=== PATIENT | male | born 1950 | race Caucasian/White ===

== ENCOUNTER 2024-03-23 13:04 | Day surgery (SDC) | payer MEDICARE, OTHER, SELFPAY ==
[2024-03-21 08:20] VITALS: BMI 30.3
--- NOTE | 2024-03-21 13:00 | P.CONAN_ITS ---
Documented by User: Lianet Thomas NP 03/21/24 13:00 HPI - Anesthesia Eval Consult details Narrative: 73yo M for Upper Endoscopy with Balloon Dilitation, [facility] Past Medical History Medical History Hyperlipidemia Sleep apnea Surgical History Surgical History Hx of repair of right rotator cuff Hx of repair of left rotator cuff H/O colonoscopy Social History Social History Patient Tobacco Use Status: Never used Tobacco Use of substances other than those prescribed or required for medical reasons: No Have you been hit, kicked, punched, or otherwise hurt by someone within the past year? If so, by whom?: No Are you DNR?: No Advance Directives: No Advance Directives Information Provided: Yes Recently lost weight without trying: No Nutrition Risks: No Nutritional Risk Meds Allergies Allergy/AdvReac Type Severity Reaction Status Date / Time No Known Allergies Allergy Verified 03/23/24 13:29 Home Medications ?Medication ?Instructions ?Recorded ?Confirmed ?Last Taken ?Type Vascepa 1 tab PO DAILY 03/21/24 03/23/24 03/09/24 History atorvastatin 40 mg tablet 40 mg PO DAILY 03/21/24 03/23/24 03/22/24 History Exam Height,Weight and Vital Signs: Height 5 ft 7.75 in Weight 89.811 kg Assessment and Plan Assessment Anesthesia Assessment: Chart Reviewed Documented by User: Ansley Waggoner MD 03/23/24 13:55 PMFSH Past Medical History Medical History Hyperlipidemia Sleep apnea Family History Family history of problems with anesthesia: No Surgical History Surgical History Hx of repair of right rotator cuff Hx of repair of left rotator cuff H/O colonoscopy History of Problems with Anesthesia: No Social History Social History Patient Tobacco Use Status: Never used Tobacco Use of substances other than those prescribed or required for medical reasons: No Have you been hit, kicked, punched, or otherwise hurt by someone within the past year? If so, by whom?: No Are you DNR?: No Advance Directives: No Advance Directives Information Provided: Yes Recently lost weight without trying: No Nutrition Risks: No Nutritional Risk Meds Allergies Allergy/AdvReac Type Severity Reaction Status Date / Time No Known Allergies Allergy Verified 03/23/24 13:29 Home Medications ?Medication ?Instructions ?Recorded ?Confirmed ?Last Taken ?Type Vascepa 1 tab PO DAILY 03/21/24 03/23/24 03/09/24 History atorvastatin 40 mg tablet 40 mg PO DAILY 03/21/24 03/23/24 03/22/24 History Exam Airway Mallampati Class: II TM Dist: >3cm Neck ROM: Full Heart: rrr Lungs: cta Assessment and Plan Assessment Anesthesia Assessment: Anesthesia Plan Discussed Final Anesthetic Review Family History of Problems with Anesthesia: No History of Problems with Anesthesia: No NPO: Yes ASA Class: II Final Preanesthetic Review: No Changes in Pt Med Stat, Meds/Allgs Chart Reviewed, Consent Obtained/Reviewed and Anes Risks/Benef Reviewed Patient Risk: Low Procedure Risk: Low Anesthetic Plan Anesthetic Plan: MAC: Disposition: Standard PACU
--- OUTSIDE RECORDS SUMMARY | 2024-03-23 13:07 | XMS_ITS | Continuity of Care Document ---
Author Organization [facility] Alonso Cooper Ivan lt Address [address] [place] [address]- Care Team Providers Care Perishable Fruit Inspector Name Role Phone Mona NINO, Hima Lima Primary Care Physician [phone] [facility]counter [facility] 02/16/22 - 03/18/22 [facility] Adult [address] [place] [address]- Allergies, Adverse Reactions, Alerts No Known Allergies Immunizations Given and Recorded Vaccine Date Status Refusal Reason SARS-CoV-2 (COVID-19) mRNA BNT-162b2 vac 06/12/21 Recorded SARS-CoV-2 (COVID-19) mRNA BNT-162b2 vac 09/28/20 Recorded SARS-CoV-2 (COVID-19) mRNA BNT-162b2 vac 09/07/20 Recorded influenza virus vaccine, inactivated 09/27/20 Give n influenza virus vaccine, inactivated 05/02/19 Give n influenza virus vaccine, inactivated 05/02/18 Give n rabies vaccine, human diploid cell 01/17/20 Given rabies vaccine, human diploid cell 01/10/20 Given rabies vaccine, human diploid cell 01/06/20 Given rabies vaccine, human diploid cell 01/03/20 Given Rabies Immune Globulin, Human 1 01/03/20 Given pneumococcal 23-valent vaccine 02/03/19 Given zoster vaccine, inactivated 07/04/18 Given pneumococcal 13-valent vaccine 2 06/07/18 Recorded tetanus/diphtheria/pertussis, acel(Tdap) 06/07/18 Recorded tetanus/diphtheria/pertussis, acel(Tdap) 04/08/15 Given 1Result Comment: also left glute and right glute divided 2Result Comment: [06/16/2018] [facility] [address] Medications atorvastatin 40 mg oral tablet 1 tablet = 40 mg, By Mouth, Daily, # 90 tablet, 3 Refills, Maintenance, 09/29/21 14:02:00 EDT, Tablet, [facility]/pharmacy #[id number], 168, cm, 09/29/21 13:34:00 EDT, Height, 94.5, kg, 01/17/20 8:18:00 EDT, Dry Weight Start Date: 09/29/21 Stop Date: 09/24/22 Status: Ordered Cialis 5 mg oral tablet 1 tablet = 5 mg, By Mouth, Daily, at the same time every day, # 90 tablet, 3 Refills, Maintenance, 09/29/21 14:03:00 EDT, Tablet, [id number], Partial fill upon patient request if the prescription is for a schedule II opioid drug., 168, cm,... Start Date: 09/29/21 Stop Date: 09/24/22 Status: Ordered Glucosamine By Mouth, 0 Refills, Maintenance, 08/04/18 11:54:11 EST Start Date: 08/04/18 Status: Ordered Lorazepam 0 Refills, Maintenance, 08/04/18 11:53:51 EST Start Date: 08/04/18 Status: Ordered meclizine 25 mg oral tablet 1 tablet = 25 mg, By Mouth, 3 times a day, PRN for dizziness, for 30 days, # 30 tablet, 0 Refills, Acute 03/19/22 12:02:00 EDT, 02/17/22 12:02:00 EDT, Tablet, [facility]/pharmacy #[id number], 168, cm, 02/17/22 11:34:00 EDT, Height Start Date: 02/17/22 Stop Date: 03/19/22 Status: Ordered Vascepa 1 g oral capsule 2 capsule = 2 Gm, By Mouth, 2 times a day, # 360 capsule, 3 Refills, Maintenance, 09/29/21 14:02:00EDT, [id number], 168, cm, 09/29/21 13:34:00 EDT, Height, 94.5, kg, 01/17/20 8:18:00 EDT, Dry Weight Start Date: 09/29/21 Stop Date: 09/24/22 Status: Ordered Problem List Condition Effective Dates Status Health Status Inform ant BPPV (benign paroxysmal posi tional vertigo)(Confirmed) Active Chronic low back pain(Confirmed) Active Glucose intolerance(Confirmed) Active S/P colonoscopy(Confirmed) 1 Active HLD (hyperlipidemia)(Confirmed) Active Erectile dysfunction(Confirmed) Active Insomnia(Confirmed) Active Lumbosacral plexopathy(Confirmed) Active Obese class I(Confirmed) Active OA (osteoarthritis) of knee(Confirmed) Active Apnea, sleep(Confirmed) Active Steatohepatitis(Confirmed) Active 1Colonoscopy 2013 -, repeat 2023. Social History Social History Type Response Smoking Status Never (less than 100 in lifetime) entered on: 08/04/18 Sex Care Team Personnel Name: Mona NINO, Hima Lima Address: [address] [place] [id number]
--- OUTSIDE RECORDS SUMMARY | 2024-03-23 13:07 | XMS_ITS | Continuity of Care Document ---
Author Organization [facility] ter Address [address] [place] [address]- Care Team Providers Care Anodizing Line Operator Name Role Phone Hima Dunn MD Primary Care Physician [phone] [place] [facility] [place]10[place] - 08/10/[address] [address]- [facility] Attending Physician: Hima Dunn MD Allergies, Adverse Reactions, Alerts Substance Reaction Severity Status NKA Active Immunizations Given and Recorded Vaccine Date Status Refusal Reason influenza virus vaccine, inactivated 05/02/19 Give n influenza virus vaccine, inactivated 05/02/18 Give n pneumococcal 23-valent vaccine 02/03/19 Given zoster vaccine, inactivated 07/04/18 Given tetanus/diphtheria/pertussis, acel(Tdap) 06/07/18 Recorded tetanus/diphtheria/pertussis, acel(Tdap) 04/08/15 Given pneumococcal 13-valent vaccine 1 06/07/18 Recorded 1Result Comment: [06/16/2018] [facility] Medications atorvastatin 40 mg oral tablet 1 tablet = 40 mg, By Mouth, Daily, # 90 tablet, 3 Refills, Maintenance, 08/10/19 11:25:00 EST, Tablet, [facility]/pharmacy #[id number], 172.72, cm, 08/10/19 10:40:00 EST, Height Start Date: 08/10/19 Stop Date: 08/04/20 Status: Ordered Glucosamine By Mouth, 0 Refills, Maintenance, 08/04/18 11:54:11 EST Start Date: 08/04/18 Status: Ordered Lorazepam 0 Refills, Maintenance, 08/04/18 11:53:51 EST Start Date: 08/04/18 Status: Ordered Vascepa 1 g oral capsule 2 capsule = 2 Gm, By Mouth, 2 times a day, # 360 capsule, 3 Refills, Maintenance, 08/10/19 11:25:00EST, Capsule, [id number], 172.72, cm, 08/10/19 10:40:00 EST, Height Start Date: 08/10/19 Status: Ordered Viagra 50 mg oral tablet 1 tablet = 50 mg, By Mouth, Daily, 1 hour before sexual activity, # 30 tablet, 5 Refills, Maintenance, 02/03/19 9:51:45 EDT, Tablet Start Date: 02/03/19 Status: Ordered Problem List Condition Effective Dates Status Health Status Inform ant Chronic low back pain(Confirmed) Active HLD (hyperlipidemia)(Confirmed) Active Erectile dysfunction(Confirmed) Active Insomnia(Confirmed) Active Lumbosacral plexopathy(Confirmed) Active OA (osteoarthritis) of knee(Confirmed) Active Apnea, sleep(Confirmed) Active Steatohepatitis(Confirmed) Active Social History Social History Type Response Smoking Status Never (less than 100 in lifetime) entered on: 08/04/18 Sex
--- OUTSIDE RECORDS SUMMARY | 2024-03-23 13:07 | XMS_ITS | Patient Health Record ---
Author Organization [facility] Address [address] [place] [phone] Care Team Providers Care Wire Stripping Machine Operator Name Role Phone Hima Dunn MD Primary Care Provider Ki Leahy [phone] ALLERGIES No Known Allergies REASON FOR REFERRAL No Information MEDICATIONS Medication SIG (Take, Route, Frequency, Duration) Notes Start Date End Date Status Vascepa For hyperlipidemia A ctive Atorvastatin Calcium 40 MG Oral for 90 Active Zolpidem Tartrate 10 MG Oral for 30 Active SOCIAL HISTORY Sex Assigned At : Social History Observation Description Sex Assigned At Unknown PROBLEMS Problem Type ICD Code Onset Dates Problem Status W/U Status Risk SNOMED Code Notes Problem Encounter for screening for malignant neoplasm of colon (Z12.11) Active confirmed Screening for malignant neoplasm of colon (292368099) Problem Dysphagia (R13.10) Active confirmed Dysphagia (81502494) VITAL SIGNS Blood pressure diastolic 00 mm Hg 02/24/2024 Height 67.75 in 02/24/2024 Blood pressure systolic 00 mm Hg 02/24/2024 Weight 198 lbs 02/24/2024 BMI 30.33 kg/m2 02/24/2024 Encounters Encounter Location Date Provider Diagnosis [facility] [place] [address] [place], [place] [phone] 03/23/2024 Ki Rios [facility] [address] [place] [phone] 02/24/2024 Ki Rios Dysphagia R13.10 and Encounter for screening for malignant neoplasm of colon Z12.11 [facility] [address] [place] [phone] 02/14/2024 Ki Rios ASSESSMENTS Encounter Date Diagnosis Assessment Notes Treatment Notes Treatment Clinical Notes 02/24/2024 Encounter for screening for malignant neoplasm of colon (ICD-10 - Z12.11) 02/24/2024 Dysphagia (ICD-10 - R13.10) PLAN OF TREATMENT Future Test Test Name Order Date COLONOSCOPY 01/17/2014 UPPER GI ENDOSCOPY BALLOOON DILATION OF ESOPH 02/24/2024 COLONOSCOPY 02/24/2024 Next Appt Details Provider Name:Ki Vaughan Rios , 03/23/2024 02:00:00 PM, [address] [place] [address] , [place], [place], [phone], Insurance Providers Payer Name Payer Address Payer Phone Subscriber Number Group Number Insured Name Patient Relationship to Insured Coverage Start Date Coverage End Date MEDICARE OF [place] [address] [place] [address] [id number] ONELIA YARBROUGH Self - patient is the insured [facility] [place] [address] [place] [address] [id number] ONELIA YARBROUGH Self - patient is the insured MEDICAL (GENERAL) HISTORY Medical History History ICD Code Sleep apnea--uses CPAP machine Denies AK,DM,CVA,Lung disease,renal dise ase Hyperlipidemia Neg screening colonoscopy in 03/2003 Neg screening colonoscopy in 04/2014 Surgical History Surgery Date(Month/Year) Left rotator cuff tear repair 08/26/2023 Right rotator cuff repair
--- OUTSIDE RECORDS SUMMARY | 2024-03-23 13:07 | XMS_ITS ---
Author Organization [facility] Address [address] [place] [phone] Care Team Providers Care Distribution Transformer Assembler Name Role Phone Hima Dunn MD Primary Care Provider Ki Leahy [phone] ALLERGIES No Known Allergies REASON FOR VISIT patient presents today for dysphagia MEDICATIONS Medication SIG (Take, Route, Frequency, Duration) Notes Start Date End Date Status Atorvastatin Calcium 40 MG Oral for 90 Active Zolpidem Tartrate 10 MG Oral for 30 Active Vascepa For hyperlipidemia A ctive PROBLEMS Problem Type ICD Code Onset Dates Problem Status W/U Status Risk SNOMED Code Notes Problem Dysphagia (R13.10) Active confirmed Dysphagia (84170326) Problem Encounter for screening for malignant neoplasm of colon (Z12.11) Active confirmed Screening for malignant neoplasm of colon (799375895) VITAL SIGNS BMI 30.33 kg/m2 02/24/2024 Blood pressure systolic 00 mm Hg 02/24/20 24 Blood pressure diastolic 00 mm Hg 024 Height 67.75 in 02/24/2024 Weight 198 lbs 02/24/2024 Encounters Encounter Location Date Provider Diagnosis [facility] [address] [place] [phone] 02/24/2024 Ki Rios Dysphagia R13.10 and Encounter for screening for malignant neoplasm of colon Z12.11 ASSESSMENTS Encounter Date Diagnosis Assessment Notes Treatment Notes Treatment Clinical Notes 02/24/2024 Dysphagia (ICD-10 - R13.10) 02/24/2024 Encounter for screening for malignant neoplasm of colon (ICD-10 - Z12.11) PLAN OF TREATMENT Future Test Test Name Order Date UPPER GI ENDOSCOPY BALLOOON DILATION OF ESOPH 02/24/2024 COLONOSCOPY 02/24/2024 Next Appt Details Follow Up: prn, Reason: Provider Name:Ki Rios , 03/23/2024 02:00:00 PM, [address] [place] [address], [id number], Progress Notes * Examination Category Sub-Category Detail Notes General Examination GENERAL APPEARANCE: pleasant , well nourished, well developed, in no acute distress HEAD: EYES: sclera non-icteric EARS: NOSE: THROAT: NECK/THYROID: no cervical lymphade nopathy, neck supple HEART: S1, S2 normal CHEST: LUNGS: clear to auscultatio n bilaterally ABDOMEN: normal bowel sounds, no guarding or rigidity, no guarding or rigidity, no masses palpable, soft, nontender, nondistended NEUROLOGIC: alert and oriented SKIN: nonjaundiced, no spi adebayo angiomata EXTREMITIES: no edema PERIPHERAL PULSES: BACK: BREASTS: MUSCULOSKELETAL: MALE GENITOURINARY: LYMPH NODES: RECTAL EXAM: FEMALE GENITOURINARY: ORAL CAVITY: mucosa moist
--- OUTSIDE RECORDS SUMMARY | 2024-03-23 13:07 | XMS_ITS | Continuity of Care Document ---
Author Organization [facility] Kenneth Ivan lt Address [address] [place] [address]- Care Team Providers Care Can Sealer Name Role Phone Hima Dunn MD Primary Care Physician [facility] 04[facility]23 - 05/19/23 [facility] Adult [address] [place] [address]- Attending Physician: Admtr, Ar8 Admitting Physician: Admtr, Ar8 Referring Physician: Admtr, Ar8 Allergies, Adverse Reactions, Alerts No Known Allergies [...] and right glute divided 2Result Comment: [06/16/2018] [facility] [address] Medications atorvastatin 40 mg oral tablet 1 tablet = 40 mg, By Mouth, Daily, # 90 tablet, 3 Refills, Maintenance, 10/06/22 14:19:00 EDT, Tablet, [facility]/pharmacy #[id number], 168, cm, 10/06/22 13:50:00 EDT, Height Start Date: 10/06/22 Stop Date: 10/01/23 Status: Ordered Cialis 5 mg oral tablet 1 tablet = 5 mg, By Mouth, Daily, at the same time every day, # 90 tablet, 3 Refills, Maintenance, 04/19/23 16:28:00 EDT, Tablet, Partial fill upon patient request if the prescription is for a schedule II opioid drug. Start Date: 04/19/23 Stop Date: 04/13/24 Status: Ordered Glucosamine By Mouth, 0 Refills, Maintenance, 08/04/18 11:54:11 EST Start Date: 08/04/18 Status: Ordered LORazepam 0.5 mg oral tablet 1 tablet = 0.5 mg, By Mouth, Daily at bedtime, PRN Insomnia, # 30 tablet, 0 Refills, Maintenance, 04/19/23 16:45:00 EDT, Tablet, [facility]/pharmacy #[id number], Partial fill upon patient request if the prescription is for a schedule II opioid drug., 172, cm, 04/04... Start Date: 04/19/23 Status: Ordered Vascepa 1 g oral capsule 2 capsule = 2 Gm, By Mouth, 2 times a day, # 360 capsule, 3 Refills, Maintenance, 10/06/22 14:19:00EDT, [facility]/pharmacy #[id number], 168, cm, 10/06/22 13:50:00 EDT, Height Start Date: 10/06/22 Stop Date: 10/01/23 Status: Ordered Problem List Condition Confirmation Course Effective Dates Status H ealth Status Informant BPPV (benign paroxysmal positional vertigo) Confirmed Active Chronic low back pain Confirmed Active Chronic neck pain Confirmed Active Chronic left shoulder pain Confirmed Active Glucose intolerance Confirmed Active S/P colonoscopy 1 Confirmed Active HLD (hyperlipidemia) Confirmed Active Erectile dysfunction Confirmed Active Insomnia Confirmed Active Lumbosacral plexopathy Confirmed Active Obese class I Confirmed Active Obstructive sleep apnea Confirmed Active OA (osteoarthritis) of knee Confirmed Active Apnea, sleep Confirmed Active Steatohepatitis Confirmed Active 1Colonoscopy 2013 -, repeat 2023. Social History Social History Type Response Smoking Status Never (less than 100 in lifetime) entered on: 08/04/18 Sex Laboratory * Event Display: Non BH Lab Results Authored Date: * Event Display: Non BH Lab Results Authored Date: * Event Display: Non BH Lab Results Authored Date: Patient Care team information Care Team Personnel Name: Mona NINO, Hima Lima Position: [facility] Physician - Primary Care Member Role: PCP Address: Address: [address] [place] [address]- Care Team Related Persons Name: SPRINGBENJAMIN Address: [address] [address]
--- OUTSIDE RECORDS SUMMARY | 2024-03-23 13:07 | XMS_ITS | Continuity of Care Document ---
Author Organization [facility] [place] Ivan lt Address [address] [place] [address]- Care Team Providers Care Clicking Machine Operator Name Role Phone Hima Dunn MD Primary Care Physician [facility] 06[facility]20 - 07/17/20 [facility] [place] Adult [address] [place] [address]- Allergies, Adverse Reactions, Alerts Substance Reaction Severity Status NKA Active Immunizations Given and Recorded Vaccine Date Status Refusal Reason rabies vaccine, human diploid cell 01/17/20 Given rabies vaccine, human diploid cell 01/10/20 Given rabies vaccine, human diploid cell 01/06/20 Given rabies vaccine, human diploid cell 01/03/20 Given Rabies Immune Globulin, Human 1 01/03/20 Given influenza virus vaccine, inactivated 05/02/19 Give n [...] 3 Refills, Maintenance, 08/10/19 11:25:00 EST, Tablet, [id number], 172.72, cm, 08/10/19 10:40:00 EST, [...] EST, Height Start Date: 08/10/19 Status: Ordered Vascepa 1 g oral capsule See Instructions, TAKE 2 CAPSULES BY MOUTH TWICE DAILY, # 120 capsule, 11 Refills, Maintenance, [facility] [id number], 168, cm, 01/17/20 8:18:00 EDT, Height, 94.5, kg, 01/17/20 8:18:00 EDT, Dry Weight Start Date: 06/18/20 Status: Ordered Viagra 50 mg oral tablet [...]
--- OUTSIDE RECORDS SUMMARY | 2024-03-23 13:07 | XMS_ITS ---
Author Organization [facility] Address [address] [place] [address] Care Team Providers Care Chief Of Staff Name Role Phone Hima Dunn MD Primary Care Provider Ki Leahy [phone] REASON FOR VISIT screening,dysphagia Encounters Encounter Location Date Provider Diagnosis [facility] [place] [address] [place] [phone] 03/23/2024 Ki Rios PLAN OF TREATMENT Next Appt Details Provider Name:Ki iRos , 03/23/2024 02:00:00 PM, [address] [place] [address] , [place], [place], [phone],
--- OUTSIDE RECORDS SUMMARY | 2024-03-23 13:07 | XMS_ITS | Continuity of Care Document ---
Author Organization [facility] Ivan lt Address [address] [place] [address]- Care Team Providers Care Desk Interviewer Name Role Phone Hima Dunn MD Primary Care Physician [facility]): 01/12/24 - 02/11/24 [facility] Adult [address] [place] [address]- Allergies, Adverse Reactions, Alerts No Known Allergies Immunizations Given and Recorded Vaccine Date Status Refusal Reason RSV vaccine preF3, recombinant 07/09/23 Recorded zoster vaccine, inactivated 12/04/22 Recorded zoster vaccine, inactivated 07/04/18 Given pneumococcal 20-valent conjugate vaccine 12/04/22 Recorded SARS-CoV-2 (COVID-19) mRNA BNT-162b2 vac 06/12/21 Recorded [...] 01/03/20 Given pneumococcal 23-valent vaccine 02/03/19 Given pneumococcal 13-valent vaccine 2 06/07/18 Recorded tetanus/diphtheria/pertussis, acel(Tdap) 06/07/18 Recorded tetanus/diphtheria/pertussis, acel(Tdap) 04/08/15 Given 1Result Comment: also left glute and right glute divided 2Result Comment: [06/16/2018] [facility] [address] Medications atorvastatin 40 mg oral tablet 1 tablet = 40 mg, By Mouth, Daily, # 90 tablet, 3 Refills, Maintenance, 10/12/23 11:10:00 EDT, Tablet, [facility]/pharmacy #[id number], 172, cm, 10/12/23 11:00:00 EDT, Height, 90.8, kg, 02/13/23 11:17:00 EDT, DryWeight Start Date: 10/12/23 Stop Date: 10/06/24 Status: Ordered Cialis 5 mg oral tablet 1 tablet = 5 mg, By Mouth, Daily, at the same time every day, # 90 tablet, 3 Refills, Maintenance, 10/12/23 11:11:00 EDT, Tablet, [facility] # [id number], Partial fill upon patient request if the prescription is for a schedule II opioid drug., 172, cm,... Start Date: 10/12/23 Stop Date: 10/06/24 Status: Ordered Glucosamine By Mouth, 0 Refills, Maintenance, 08/04/18 11:54:11 EST Start Date: 08/04/18 Status: Ordered Golytely - oral powder for reconstitution See Instructions, Per instructions from GI., # 4,000 mL, 0 Refills, Maintenance, 01/18/24 11:37:00 EDT, [facility]/pharmacy #[id number], Partial fill upon patient request if the prescription is for a schedule II opioid drug., Per instructions from GI., 172, cm, 07... Start Date: 01/18/24 Status: Ordered Vascepa 1 g oral capsule 2 capsule = 2 Gm, By Mouth, 2 times a day, # 360 capsule, 3 Refills, Maintenance, 10/12/23 11:10:00EDT, [facility]/pharmacy #[id number], 172, cm, 10/12/23 11:00:00 EDT, Height, 90.8, kg, 02/13/23 11:17:00 EDT, Dry Weight Start Date: 10/12/23 Stop Date: 10/06/24 Status: Ordered zolpidem 10 mg oral tablet 1 tablet = 10 mg, By Mouth, Daily at bedtime, # 30 tablet, 5 Refills, Maintenance, 01/13/24 8:33:00EDT, [facility]/pharmacy #[id number], Partial fill upon patient request if the prescription is for a schedule IIopioid drug., 172, cm, 01/13/24 7:57:00 EDT, Height... Start Date: 01/13/24 Status: Ordered Problem List Condition Confirmation Course Effective Dates Status H ealth Status Informant BPPV (benign paroxysmal positional vertigo) Confirmed Active Chronic low back pain Confirmed Active Chronic neck pain Confirmed Active Chronic left shoulder pain Confirmed Active Glucose intolerance Confirmed Active S/P arthroscopy of left shoulder Confirmed Active S/P colonoscopy 1 Confirmed Active [...] 100 in lifetime) entered on: 08/04/18 Sex Patient Care team information Care Team Personnel Name: Mona NINO, Hima Lima Position: [facility] Physician - Primary Care Member Role: PCP Address: Address: [address] [place] [address]- Care Team Related Persons Name: ZENONBENJAMIN Address: home [address] [place] [address]
--- OUTSIDE RECORDS SUMMARY | 2024-03-23 13:07 | XMS_ITS | Continuity of Care Document ---
Author Organization [facility] Address [address] [place] [address]- Care Team Providers Care Medical Dir Name Role Phone Mona NINO, Hima Lima Primary Care Physician Encounter [facility] Date(s): 01/06/20 - 01/06/[address] [address]- [place] Discharge Disposition: A-D/C Home Attending Physician: Abdifatah Antonio DO Admitting Physician: Abdifatah Antonio DO Referring Physician: Not on Staff, Referring MD Allergies, Adverse Reactions, Alerts Substance Reaction Severity Status NKA Active Immunizations Given and Recorded Vaccine Date Status Refusal Reason rabies vaccine, human diploid cell 01/06/20 Given rabies vaccine, human diploid cell 01/03/20 Given Rabies Immune Globulin, Human 1 01/03/20 Given influenza virus vaccine, inactivated 05/02/19 Give n influenza virus vaccine, inactivated 05/02/18 Give n pneumococcal 23-valent vaccine 02/03/19 Given zoster vaccine, inactivated 07/04/18 Given tetanus/diphtheria/pertussis, acel(Tdap) 06/07/18 Recorded tetanus/diphtheria/pertussis, acel(Tdap) 04/08/15 Given pneumococcal 13-valent vaccine 2 06/07/18 Recorded 1Result Comment: also left glute and right [...] knee(Confirmed) Active Apnea, sleep(Confirmed) Active Steatohepatitis(Confirmed) Active Vital Signs Most recent to oldest [Reference Range]: 1 Height 173 cm (01/06/20 8:28 AM) Weight 93 kg (01/06/20 8:28 AM) Oxygen Saturation [94-100 %] 98 % (01/06/20 8:28 AM) Pulse Rate [55-90 bpm] 63 bpm (01/06/20 8:28 AM) Blood Pressure [90-138/55-84 mm Hg] 125/ 70mm Hg (01/06/20 8:28 AM) Respiratory Rate [16-30 br/min] 14 br/mi n *L* (01/06/20 8:28 AM) Temperature [96.8-100.4 DegF] 97.5 DegF (01/06/20 8:28 AM) Mode of Delivery (Oxygen) Room air (01/06/20 8:28 AM) Blood pressure sites Arm, left (01/06/20 8:28 AM) Temperature Route Oral (01/06/20 8:28 AM) Dry Weight 93 kg (01/06/20 8:28 AM) Dry Weight Obtained Via Standing scale (01/06/20 8:28 AM) Social History Social History Type Response Smoking Status Never (less than 100 in lifetime) entered on: 08/04/18 Sex
--- OUTSIDE RECORDS SUMMARY | 2024-03-23 13:07 | XMS_ITS | Continuity of Care Document ---
Author Organization [facility] Address [address] [place] [address]- Care Team Providers Care Copy And Print Associate Name Role Phone Hima Dunn MD Primary Care Physician Encounter [facility] Date(s): 01/04/20 - 02/03/20 [facility] Adult [address] [place] [address]- [facility] Attending Physician: Admtr, Ar8 Admitting Physician: Admtr, Amando8 Referring Physician: Admtr, Ar8 Allergies, Adverse Reactions, Alerts Substance Reaction Severity [...] and right glute divided 2Result Comment: [06/16/2018] [facility] [address] Medications atorvastatin 40 mg oral tablet 1 tablet = 40 mg, By Mouth, Daily, # 90 tablet, 3 Refills, Maintenance, 08/10/19 11:25:00 EST, Tablet, [id number], 172.72, cm, 08/10/19 10:40:00 EST, Height Start Date: 08/10/19 Stop Date: 1/31/21 Status: Ordered Glucosamine By Mouth, 0 Refills, Maintenance, 08/04/18 11:54:11 EST Start Date: 08/04/18 Status: Ordered Lorazepam 0 Refills, Maintenance, 08/04/18 11:53:51 EST Start Date: 08/04/18 Status: Ordered Vascepa 1 g oral capsule 2 capsule = 2 Gm, By Mouth, 2 times a day, # 360 capsule, 3 Refills, Maintenance, 08/10/19 11:25:00EST, Capsule, [facility]/pharmacy #[id number], 172.72, cm, 08/10/19 10:40:00 [...]
--- OUTSIDE RECORDS SUMMARY | 2024-03-23 13:07 | XMS_ITS ---
Author Organization [facility] Address [address] [place] [id number] Care Team Providers Care Companion Caregiver Name Role Phone Mona NINO, Hima Primary Care Provider Ki Leahy [phone] REASON FOR VISIT Put in for 02/23--food getting stuck, due for colon recall Encounters Encounter Location Date Provider Diagnosis [facility] [address] [place] [id number] 02/14/2024 Ki Rios PLAN OF TREATMENT Next Appt Details Provider Name:Ki Rios , 03/23/2024 02:00:00 PM, [address] [place] [address] , [place], [place], [phone],
--- OUTSIDE RECORDS SUMMARY | 2024-03-23 13:07 | XMS_ITS | Continuity of Care Document ---
Author Organization [facility] Address [address] [place] [address]- Care Team Providers Care Denture Laboratory Technician Name Role Phone Hima Dunn MD Primary Care Physician [facility]counter [facility] Date(s): 01/13/24 - 01/20/24 [facility] Adult [address] [place] [address]- Attending Physician: Hima Dunn MD Allergies, Adverse Reactions, Alerts No Known Allergies [...] and right glute divided 2Result Comment: [06/16/2018] [facility] [address] Medications atorvastatin 40 mg oral tablet 1 tablet = 40 mg, By Mouth, Daily, # 90 tablet, 3 Refills, Maintenance, 10/12/23 11:10:00 EDT, Tablet, [facility]/pharmacy #[id number], 172, cm, 10/12/23 11:00:00 EDT, Height, 90.8, kg, 02/13/23 11:17:00 EDT, DryWeight Start Date: 10/12/23 Stop Date: 10/06/24 Status: Ordered Cialis 5 mg oral tablet 1 tablet = 5 mg, By Mouth, Daily, at the same time every day, # 90 tablet, 3 Refills, Maintenance, 10/12/23 11:11:00 EDT, Tablet, [facility] # [id number], Partial fill upon [...] mL, 0 Refills, Maintenance, 01/18/24 11:37:00 EDT, [facility]/pharmacy #[id number], Partial fill upon patient request if the prescription is for a schedule II opioid drug., Per instructions from GI., 172, cm, 07... Start Date: 01/18/24 Status: Ordered Vascepa 1 g oral capsule 2 capsule = 2 Gm, By Mouth, 2 times a day, # 360 capsule, 3 Refills, Maintenance, 10/12/23 11:10:00EDT, [facility]/pharmacy #[id number], 172, cm, 10/12/23 11:00:00 EDT, Height, 90.8, kg, 02/13/23 11:17:00 EDT, Dry Weight Start Date: 10/12/23 Stop Date: 10/06/24 Status: Ordered zolpidem 10 mg oral tablet 1 tablet = 10 mg, By Mouth, Daily at bedtime, # 30 tablet, 5 Refills, Maintenance, 01/13/24 8:33:00EDT, [facility]/pharmacy #[id number], Partial fill upon patient request if [...] Confirmed Active 1Colonoscopy 2013 -, repeat 2023. Vital Signs Most recent to oldest [Reference Range]: 1 Height 172 cm (01/13/24 7:57 AM) Weight 96.0 kg (01/13/24 7:57 AM) Oxygen Saturation [94-100 %] 97 % (01/13/24 7:57 AM) Pulse Rate [55-90 bpm] 61 bpm (01/13/24 7:57 AM) Body Mass Index [18.5-24.99 kg/m2] 32.45 kg/m2 *>HHI* (01/13/24 7:57 AM) Diastolic Blood Pressure [55-84 mm Hg] 6 7 mm Hg (01/13/24 7:57 AM) Mode of Delivery (Oxygen) Room air (01/13/24 7:57 AM) Blood pressure sites Arm, left (01/13/24 7:57 AM) Weight Obtained Via Standing scale (01/13/24 7:57 AM) Social History Social History Type Response Smoking Status Never (less than 100 in lifetime) entered on: 08/04/18 Sex EKG study * Event Display: ECG 12-Lead Authored Date: Please click on pdf link to open report * Event Display: ECG 12-Lead Authored Date: Ventricular Rate: 54 BPM Atrial Rate: 54 BPM P-R Interval: 202 ms QRS Duration: 82 ms Q-T Interval: 424 ms QTC Calculation(Bazett): 402 ms P Grafton: 68 degrees R Grafton: 1 degrees T Grafton: 34 degrees Sinus bradycardia Possible Left atrial enlargement Borderline ECG When compared with ECG of 19-APR-2023 15:58, No significant change was found Confirmed by Hima Salamanca ([id number]) on 01/13/2024 9:04:06 AM [place]: Hima Salamanca Note * Genna Charles: PERFORM Event Display: Patient Education/Instruction Authored Date: [id number] Ambulatory Adult Visit Summary [facility] [address] [place] [address] Name: ONELIA YARBROUGH : 1950?? Visit: 01/13/2024 07:49?? Ambulatory Visit Instructions ?? Your Care Team Primary Care Provider Hima Dunn MD? This Visit Provider Hima Dunn MD Your Diagnosis Palpitations Fatigue Vitals Signs Pulse Rate: 61 bpm Height: 172 cm Diastolic Blood Pressure: 67 mm Hg Weight: 96 kg Oxygen Saturation: 97 % Body Mass Index:??32.45 kg/m2??Critical ?? Body surface area: 2.14 What to do next Scheduled Follow-Up Appointments Wednesday 11:00 AM EDT ?? With: Tracey Ross Where: [facility] [address] [place] [address]- Status: Pending 2023 6:50 AM EDT ?? With: Gisele Marx NP Where: [facility] [address] [place] [address]- Status: Pending Follow-Up Appointments Follow Up with??Hima Dunn MD When:??In 1 month Where: ?? Future Orders Thyroid Panel - Routine, Once, 01/13/24 8:30:00 EDT, Future Order, [facility], Blood?? CBC - Routine, Once, 01/13/24 8:30:00 EDT, Future Order, [facility], Blood?? Comprehensive Metabolic Panel - Routine, Once, 01/13/24 8:30:00 EDT, Future Order, [facility], Blood?? Northeast Tick PCR Panel - Routine, Once, 01/13/24 8:31:00 EDT, Future Order, [facility], Blood?? Lyme Disease Ab Screen - Routine, Once, 01/13/24 8:31:00 EDT, Future Order, [facility], Blood?? C Reactive Protein - Routine, Once, 01/13/24 8:31:00 EDT, Future Order, [facility], Blood?? Sedimentation Rate - Routine, Once, 01/13/24 8:31:00 EDT, Future Order, [facility], Blood?? Medications The list below reflects the information in our records and provided by you today along with any changes made during this visit. Please continue your medications until treatment is completed or stopped by your provider. If this is different from the information you have or there are other questions,please contact the prescribing provider. What How Much When Instructions New Zolpidem (zolpidem 10 mg oral tablet) 1 tab(s) Oral Daily at Bedtime Refills: 5 Pickup at [facility]/pharmacy #[id number] Unchanged Atorvastatin (atorvastatin 40 mg oral tablet) 1 tab(s) Oral Daily Duration: 90 Days Unchanged Glucosamine Oral Unchanged icosapent (Vascepa 1 g oral capsule) 2 capsule Oral Twice a day Duration: 90 Days Unchanged tadalafil (Cialis 5 mg oral tablet) 1 tab(s) Oral Daily Duration: 90 Days at the same time every day ?? Pharmacy Information [facility]/pharmacy #[id number]: [address] [place] [address], [place] [id number] [phone] ?? What How Much When Comments Stop Taking Lorazepam (LORazepam 0.5 mg oral tablet) 1 tab(s) Oral Daily at Bedtime as needed for Insomnia Test Performed Below is a partial list of the tests performed during your Visit. You may have had other tests and procedures not included in this list. Please discuss all test results with your provider. C Reactive Protein?-- Results Pending -- CBC?-- Results Pending -- Comprehensive Metabolic Panel?-- Results Pending -- Lyme Disease Ab Screen?-- Results Pending -- Northeast Tick PCR Panel?-- Results Pending -- Sedimentation Rate?-- Results Pending -- Thyroid Panel?-- Results Pending -- You will be contacted within 72 hours with your results. Medications and Immunizations Administered Medications Given During Visit No medications given during this visit.?? Allergies (NKA means No Known Allergies) NKA Common Emergency Awareness Tips IS IT A STROKE? Act FAST and Check for these signs: FACE Does the face look uneven? ARM Does one arm drift down? SPEECH Does their speech sound strange? TIME Call at any sign of stroke ?? Heart Attack Signs Chest discomfort: Most heart attacks involve discomfort in the center of the chest and lasts more than a few minutes, or goes away and comes back. It can feel like uncomfortable pressure, squeezing, fullness or pain. Discomfort in upper body: Symptoms can include pain or discomfort in one or both arms, back, neck, jaw or stomach. Shortness of breath: With or without discomfort. Other signs: Breaking out in a cold sweat, nausea, or lightheaded. Remember, MINUTES DO MATTER. If you experience any of these heart attack warning signs, call to get immediate medical attention! ?? Smoking can increase your chances of developing chronic health problems and can cause harmful effects to other family members in your house. If you smoke, you are strongly encouraged to quit. Please call [employer] at [phone] or 5-435-298MyWebGrocer (0120) or log in to [email or web address] for referrals to smoking cessation programs. ?? The National Suicide Prevention Hotline is available 25/01 if you or someone you know needs to find a reason to keep living. By calling 9-174-678-Social Genius (0171) you'll be connected to a skilled, trained counselor at a crisis center in your area. [facility] Health Portal You can view and manage your care through the patient portal or by using a health care donna of your choosing. [employer] is a website that allows you to securely view your medical information including your hospital discharge summary, office visit summaries, medications and follow-up visits. You can also request appointments, renew medications, and request access to your medical information using a health care donna of your choosing, or just ask a question. You can enroll at [email or web address] or register during your next office visit. [facility], in keeping with [facility] guidance, no longer requires face masks for staff, patientsor visitors in most situations. Similiar to time spent indoors at other locations, there is the chance that you were exposed to repiratory viruses during your time with us (such as flu or COVID-19). If you develop symptoms concerning for a viral respiratory infection, please seek testing (and treatment if indicated) from your medical provider or home test kit. ?? Disclaimer: The information provided is of a general nature and is intended to be used in conjunction with the recommendations and advice of your health care practitioner. Every effort has been made to ensure that the information provided is accurate and complete at the time it is provided to you however, as your needs change, or, as new information becomes available, different or additional instructions may be required. ?? If you have questions, please consult with your primary care provider or pharmacist, as appropriate. This information is not intended to serve as substitution for assessment and evaluation by a qualified health care provider. If you do not have a primary care provider, you may find a [facility] provider by calling [facility] Publish2 Link at [phone]. Patient Care team information Care Team Personnel Name: Hima Dunn MD Position: S Physician - Primary Care Member Role: PCP Address: Address: [address] [place] [address]- Care Team Related Persons Name: ZENONBENJAMIN Address: [address] [address]
--- OUTSIDE RECORDS SUMMARY | 2024-03-23 13:08 | XMS_ITS | Continuity of Care Document ---
Author Organization [facility] Address [address] [place] [address]- Care Team Providers Care Loan Service Officer Name Role Phone Hima Dunn MD Primary Care Physician [facility] Date(s): 02/17/22 - 03/19/22 [facility] Adult [address] [place] [address]- Attending Physician: Admtr, Ar8 Admitting Physician: Admtr, [...] and right glute divided 2Result Comment: [06/16/2018] [facility] [address] Medications atorvastatin 40 mg oral tablet 1 tablet = 40 mg, By Mouth, Daily, # 90 tablet, 3 Refills, Maintenance, 09/29/21 14:02:00 EDT, Tablet, [facility]/pharmacy #[id number], 168, cm, 09/29/21 13:34:00 EDT, Height, 94.5, kg, 01/17/20 8:18:00 EDT, Dry Weight Start Date: 09/29/21 Stop Date: 09/24/22 Status: Ordered Cialis 5 mg oral tablet 1 tablet = 5 mg, By Mouth, Daily, at the same time every day, # 90 tablet, 3 Refills, Maintenance, 09/29/21 14:03:00 EDT, Tablet, [facility] # [facility], Partial fill upon patient [...] 360 capsule, 3 Refills, Maintenance, 09/29/21 14:02:00EDT, [facility]/pharmacy #[id number], 168, cm, 09/29/21 13:34:00 EDT, Height, [...] Sex Care Team Personnel Name: Mona NINO, Hmia Lima Address: [address] [place] [id number]-
--- OUTSIDE RECORDS SUMMARY | 2024-03-23 13:08 | XMS_ITS | Continuity of Care Document ---
Author Organization [facility] Address [address] [place] [address]- Care Team Providers Care Box Office Manager Name Role Phone Mona NINO, Hima Lima Primary Care Physician [facility] Date(s): 09/11/19 - 09/18/19 [facility] Adult [address] [place] [address]- [facility] Attending Physician: Jameson TEJEDA, Jesenia Allergies, Adverse Reactions, Alerts Substance Reaction Severity Status NKA Active Immunizations Given and Recorded Vaccine Date Status Refusal Reason influenza virus vaccine, inactivated 05/02/19 Give n influenza virus vaccine, inactivated 05/02/18 Give n pneumococcal 23-valent vaccine 02/03/19 Given zoster vaccine, inactivated 07/04/18 Given tetanus/diphtheria/pertussis, acel(Tdap) 06/07/18 Recorded tetanus/diphtheria/pertussis, acel(Tdap) 04/08/15 Given pneumococcal 13-valent vaccine 1 06/07/18 Recorded 1Result Comment: [06/16/2018] [facility] Medications atorvastatin 40 mg oral tablet 1 tablet = 40 mg, By Mouth, Daily, # 90 tablet, 3 Refills, Maintenance, 08/10/19 11:25:00 EST, Tablet, [facility]/pharm[facility] #[id number], 172.72, cm, 08/10/19 10:40:00 EST, Height [...] recent to oldest [Reference Range]: 1 Height 172.72 cm (09/11/19 1:19 PM) Weight 93.6 kg (09/11/19 1:19 PM) Oxygen Saturation [94-100 %] 98 % (09/11/19: PM) Pulse Rate [55-90 bpm] 75 bpm (09/11/19 1:19 PM) Body Mass Index [18.5-24.99] 31.38 *>HHI* (09/11/19 1:19 PM) Blood Pressure [90-138/55-84 mm Hg] 126/ 70mm Hg (09/11/19 1: PM) Respiratory Rate [16-30 br/min] 16 br/mi n (09/11/19 1: PM) Temperature [96.8-100.4 DegF] 98.6 DegF (09/11/19: PM) Mode of Delivery (Oxygen) Room air (09/11/19 1:19 PM) Blood pressure sites Arm, left (09/11/19 1:19 PM) Temperature Route Oral (09/11/19 1:19 PM) Weight Obtained Via Standing scale (09/11/19 1:19 PM) Social History Social History Type Response Smoking Status Never (less than 100 in lifetime) entered on: 08/04/18 Sex
--- OUTSIDE RECORDS SUMMARY | 2024-03-23 13:08 | XMS_ITS | Continuity of Care Document ---
Author Organization [facility] Address [address] [place] [address]- Care Team Providers Care Flying I Instructor Name Role Phone Mona NINO, Hima Lima Primary Care Physician [facility] Date[facility]s): 10/14/21 - 11/13/21 [facility] Adult [address] [place] [address]- Allergies, Adverse Reactions, Alerts No Known Allergies [...] 3 Refills, Maintenance, 09/29/21 14:02:00 EDT, Tablet, [facility]/pharmacy #[id number], 168, cm, 09/29/21 13:34:00 EDT, Height, 94.5, kg, 01/17/20 8:18:00 EDT, Dry Weight Start Date: 09/29/21 Stop Date: 09/24/22 Status: Ordered Cialis 5 mg oral tablet 1 tablet = 5 mg, By Mouth, Daily, at the same time every day, # 90 tablet, 3 Refills, Maintenance, 09/29/21 14:03:00 EDT, Tablet, [facility] # 302, Partial fill upon patient request if the prescription is for a schedule II opioid drug., 168, cm,... Start Date: 09/29/21 Stop Date: 09/24/22 Status: Ordered Glucosamine By Mouth, 0 Refills, Maintenance, 08/04/18 11:54:11 EST Start Date: 08/04/18 Status: Ordered Lorazepam 0 Refills, Maintenance, 08/04/18 11:53:51 EST Start Date: 08/04/18 Status: Ordered tamsulosin 0.4 mg oral capsule 1, capsule, By Mouth, Daily, # 30 capsule, Refills 12, Route to Pharmacy Electronically, [facility] ST[facility] [id number], 168, cm, 09/29/21 13:34:00 EDT, Height, 94.5, kg, 01/17/20 8:18:00 EDT, Dry Weight Start Date: 11/10/21 Status: Ordered Vascepa 1 g oral capsule 2 capsule = 2 Gm, By Mouth, 2 times a day, # 360 capsule, 3 Refills, Maintenance, 09/29/21 14:02:00EDT, [facility]/pharmacy #[id number], 168, cm, 09/29/21 13:34:00 EDT, Height, 94.5, kg, 01/17/20 8:18:00 EDT, Dry Weight Start Date: 09/29/21 Stop Date: 09/24/22 Status: Ordered Problem List Condition Effective Dates Status Health Status Inform ant Chronic low back pain(Confirmed) Active Glucose intolerance(Confirmed) [...]
--- OUTSIDE RECORDS SUMMARY | 2024-03-23 13:08 | XMS_ITS | Continuity of Care Document ---
Author Organization [facility] Address [address] [place] [address]- Care Team Providers Care Allergist Name Role Phone Hima Dunn MD Primary Care Physician [facility] Date(s): 03/01/23 - 03/31/23 [facility] [place] Adult [address] [place] [address]- Attending Physician: Admtr, Ar8 Admitting Physician: Admtr, [...] and right glute divided 2Result Comment: [06/16/2018] [facility] [address] Medications atorvastatin 40 mg oral tablet 1 tablet = 40 mg, By Mouth, Daily, # 90 tablet, 3 Refills, Maintenance, 10/06/22 14:19:00 EDT, Tablet, [facility]/pharmacy #[id number], 168, cm, 10/06/22 13:50:00 EDT, Height Start Date: 10/06/22 Stop Date: 10/01/23 Status: Ordered Cialis 5 mg oral tablet 1 tablet = 5 mg, By Mouth, Daily, at the same time every day, # 90 tablet, 3 Refills, Maintenance, 10/06/22 14:19:00 EDT, Tablet, [facility]/pharmacy #[id number], Partial fill upon patient request if the prescription is for a schedule II opioid drug., 168, cm, ... Start Date: 10/06/22 Stop Date: 10/01/23 Status: Ordered Glucosamine By Mouth, 0 Refills, Maintenance, 08/04/18 11:54:11 EST Start Date: 08/04/18 Status: Ordered LORazepam 0.5 mg oral tablet 1 tablet = 0.5 mg, By Mouth, Daily at bedtime, PRN Insomnia, # 30 tablet, 0 Refills, Maintenance, 10/06/22 14:18:00 EDT, Tablet, [facility]/pharmacy #[id number], Partial fill upon patient request if the prescription is for a schedule II opioid drug., 168, cm, 0... Start Date: 10/06/22 Status: Ordered Vascepa 1 g oral capsule 2 capsule = 2 Gm, By Mouth, 2 times a day, # 360 capsule, 3 Refills, Maintenance, 10/06/22 14:19:00EDT, [facility]/pharmacy #[id number], 168, cm, 10/06/22 13:50:00 EDT, Height [...] 08/04/18 Sex Laboratory * Event Display: Non Lab Results Authored Date: * Event Display: Non Lab Results Authored Date: * Event Display: Non Lab Results Authored Date: Patient Care team information Care Team Personnel Name: Mona NINO, Hima Lima Position: [facility] Physician - Primary Care Member Role: PCP Address: Address: [address] [place] [address]- Care Team Related Persons Name: BENJAMIN YARBROUGH Address: home [address] [place] [address]
--- OUTSIDE RECORDS SUMMARY | 2024-03-23 13:08 | XMS_ITS | Continuity of Care Document ---
Author Organization [facility] Address [address] [place] [address]- Care Team Providers Care Rn Training Name Role Phone Hima Dunn MD Primary Care Physician Encounter [facility] Date(s): 02/26/23 - 03/31/23 [facility] Adult [address] [place] [address]- Attending Physician: Not on Staff, Attending MD Allergies, Adverse Reactions, Alerts No Known [...] 3 Refills, Maintenance, 10/06/22 14:19:00 EDT, Tablet, [id number], 168, cm, 10/06/22 13:50:00 EDT, Height Start Date: 10/06/22 Stop Date: 10/01/23 Status: Ordered Cialis 5 mg oral tablet 1 tablet = 5 mg, By Mouth, Daily, at the same time every day, # 90 tablet, 3 Refills, Maintenance, 10/06/22 14:19:00 EDT, Tablet, [id number], Partial fill upon patient request if [...] 0 Refills, Maintenance, 10/06/22 14:18:00 EDT, Tablet, [id number], Partial fill upon patient request if the prescription is for a schedule II opioid drug., 168, cm, 0... Start Date: 10/06/22 Status: Ordered Vascepa 1 g oral capsule 2 capsule = 2 Gm, By Mouth, 2 times a day, # 360 capsule, 3 Refills, Maintenance, 10/06/22 14:19:00EDT, [id number], 168, cm, 10/06/22 13:50:00 EDT, Height [...] Personnel Name: Mona NINO, Hima Lima Position: [facility] Physician - Primary Care Member Role: PCP Address: Address: [address] [place] [address]- Care Team Related Persons Name: SPRINGBENJAMIN Address: [address] [address]
--- OUTSIDE RECORDS SUMMARY | 2024-03-23 13:08 | XMS_ITS | Continuity of Care Document ---
Author Organization [facility] [place] Ivan lt Address [address] [place] [address]- Care Team Providers Care Writer Producer Name Role Phone Hima Dunn MD Primary Care Physician [phone] [facility]counter [facility] Date[facility]s): 06/17/20 - 07/17/20 [facility] [place] Adult [address] [place] [address]- Allergies, Adverse Reactions, Alerts Substance Reaction Severity [...] DAILY, # 120 capsule, 11 Refills, Maintenance, [id number], 168, cm, 01/17/20 8:18:00 EDT, Height, 94.5, [...]
--- OUTSIDE RECORDS SUMMARY | 2024-03-23 13:08 | XMS_ITS | Continuity of Care Document ---
Author Organization [facility] Alonso Cooper Ivan lt Address [address] [place] [address]- Care Team Providers Care Chauffeur Motorbus Name Role Phone Mona NINO, Hima Lima Primary Care Physician Encounter [facility] [place] Date(s): 02/24/24 - 03/02/24 [facility] Adult [address] [place] [address]- Encounter Diagnosis Fatigue(Discharge Diagnosis) - 02/24/24 Insomnia(Discharge Diagnosis) - 02/24/24 Tachycardia(Discharge Diagnosis) - 02/24/24 Attending Physician: Gisele Marx NP Referring Physician: Hima Dunn MD Allergies, Adverse Reactions, [...] and right glute divided 2Result Comment: [06/16/2018] [facility] [address] Medications atorvastatin 40 mg oral tablet 1 tablet = 40 mg, By Mouth, Daily, # 90 tablet, 3 Refills, Maintenance, 10/12/23 11:10:00 EDT, Tablet, [facility]/pharmacy #[id number], 172, cm, 10/12/23 11:00:00 EDT, Height, 90.8, kg, 02/13/23 11:17:00 EDT, DryWeight Start Date: 10/12/23 Stop Date: 10/06/24 Status: Ordered Cialis 5 mg oral tablet 1 tablet = 5 mg, By Mouth, Daily, at the same time every day, # 90 tablet, 3 Refills, Maintenance, 10/12/23 11:11:00 EDT, Tablet, [facility] # [id number], Partial fill upon patient request if the prescription is for a schedule II opioid drug., 172, cm,... Start Date: 10/12/23 Stop Date: 10/06/24 Status: Ordered Glucosamine By Mouth, 0 Refills, Maintenance, 08/04/18 11:54:11 EST Start Date: 08/04/18 Status: Ordered Golytely - oral powder for reconstitution See Instructions, Per instructions from GI., # 4,000 mL, 0 Refills, Maintenance, 01/18/24 11:37:00 EDT, [facility]/pharmacy #[id number], Partial fill upon patient request if the prescription is for a schedule II opioid drug., Per instructions from GI., 172, cm, 07... Start Date: 01/18/24 Status: Ordered Vascepa 1 g oral capsule 2 capsule = 2 Gm, By Mouth, 2 times a day, # 360 capsule, 3 Refills, Maintenance, 10/12/23 11:10:00EDT, [facility]/pharmacy #[id number], 172, cm, 10/12/23 11:00:00 EDT, Height, 90.8, kg, 02/13/23 11:17:00 EDT, Dry Weight Start Date: 10/12/23 Stop Date: 10/06/24 Status: Ordered zolpidem 10 mg oral tablet 1 tablet = 10 mg, By Mouth, Daily at bedtime, # 30 tablet, 5 Refills, Maintenance, 01/13/24 8:33:00EDT, [facility]/pharmacy #[id number], Partial fill upon patient request if the [...] Confirmed Active 1Colonoscopy 2013 -, repeat 2023. Diagnosis Diagnosis Type Effective Dates Health Status Clini colleen Service Informant Fatigue Discharge Diagnosis 02/24/24 Insomnia Discharge Diagnosis 02/24/24 Tachycardia Discharge Diagnosis 02/24/24 Vital Signs Most recent to oldest [Reference Range]: 1 Height 172 cm (02/24/24 6:57 AM) Weight 91.1 kg (02/24/24 6:57 AM) Oxygen Saturation [94-100 %] 97 % (02/24/24 6:57 AM) Pulse Rate [55-90 bpm] 56 bpm (02/24/24 6:57 AM) Body Mass Index [18.5-24.99 kg/m2] 30.79 kg/m2 *>HHI* (02/24/24 6:57 AM) Blood Pressure [90-138/55-84 mm Hg] 118/ 62mm Hg (02/24/24 6:57 AM) Blood pressure sites Arm, right (02/24/24 6:57 AM) Weight Obtained Via Standing scale (02/24/24 6:57 AM) Social History Social History Type Response Smoking Status Never (less than 100 in lifetime) entered on: 08/04/18 Sex Note * Miriam Black: PERFORM Event Display: Patient Education/Instruction Authored Date: [id number] Ambulatory Adult Visit Summary [facility] Adult [facility] [address] [place] [address] Name: ONELIA YARBROUGH : 1950?? Visit: 02/24/2024 06:53?? Ambulatory Visit Instructions ?? Your Care Team Primary Care Provider Hima Dunn MD? This Visit Provider Francisco J TEJEDA , Gisele Friedman Vitals Signs Pulse Rate: 56 bpm Height: 172 cm Systolic Blood Pressure: 118 mm Hg Weight: 91.1 kg Diastolic Blood Pressure: 62 mm Hg Body Mass Index:??30.79 kg/m2??Critical Oxygen Saturation: 97 % Body surface area: 2.09 What to do next Scheduled Follow-Up Appointments Wednesday 9:15 AM EST ?? Where: [facility] Endoscopy & Special Procedures Status: Pending Follow-Up Appointments Follow Up with??Hima Dunn MD Why: as scheduled Medications The list below reflects the information in our records and provided by you today along with any changes made during this visit. Please continue your medications until treatment is completed or stopped by your provider. If this is different from the information you have or there are other questions,please contact the prescribing provider. What How Much When Why Instructions Unchanged Atorvastatin (atorvastatin 40 mg oral tablet) 1 tab(s) Oral Daily Duration: 90 Days Unchanged Glucosamine Oral Unchanged icosapent (Vascepa 1 g oral capsule) 2 capsule Oral Twice a day Duration: 90 Days Unchanged PEG Electrolyte Solution (Golytely - oral powder for reconstitution) See instructions Screening for colon cancer Per instructions from GI. ?? Unchanged tadalafil (Cialis 5 mg oral tablet) 1 tab(s) Oral Daily Duration: 90 Days at the same time every day ?? Unchanged Zolpidem (zolpidem 10 mg oral tablet) 1 tab(s) Oral Daily at Bedtime Medications and Immunizations Administered Medications Given During [...] are strongly encouraged to quit. Please call [facility] at [phone] or [phone] ([phone]) or log in to [email or web address] for referrals to smoking cessation programs. ?? The National Suicide Prevention Hotline is available 25/01 if you or someone you know needs to find a reason to keep living. By calling 9-652-400-ChemistDirect (0922) you'll be connected to a skilled, trained counselor at a crisis center in your area. [facility] You can view and manage your care through the patient portal or by using a health care donna of your choosing. [employer] is a website that allows you to securely view your medical information including your hospital discharge summary, office visit summaries, medications and follow-up visits. You can also request appointments, renew medications, and request access to your medical information using a health care donna of your choosing, or just ask a question. You can enroll at [email or web address] or register during your next office visit. [facility], in keeping with [facility] guidance, no longer requires face [...] primary care provider, you may find a [facility] provider by calling [facility] at [phone]. Patient Care team information Care Team Personnel Name: Hima Dunn MD Position: S Physician - Primary Care Member Role: PCP Address: Address: [address] [place] [address]- Care Team Related Persons Name: BENJAMIN YARBROUGH Address: [address] [address]
--- OUTSIDE RECORDS SUMMARY | 2024-03-23 13:08 | XMS_ITS | Continuity of Care Document ---
Author Organization [facility] Kenneth Ivan lt Address [address] [place] [address]- Care Team Providers Care Ceramic Engineering Professor Name Role Phone Mona NINO, Hima Lima Primary Care Physician [facility] Date(s): 02/23/23 - 03/25/23 [facility] [place] Adult [address] [place] [address]- Allergies, Adverse Reactions, Alerts No Known Allergies [...] Personnel Name: Mona NINO, Hima Lima Position: [facility] Physician - Primary Care Member Role: PCP Address: Address: [address] [place] [address]- Care Team Related Persons Name: BENJAMIN Address: [address] [address]
--- OUTSIDE RECORDS SUMMARY | 2024-03-23 13:08 | XMS_ITS | Continuity of Care Document ---
Author Organization [facility] Kenneth Ivan lt Address [address] [place] [address]- Care Team Providers Care Wire Drawer Name Role Phone Mona NINO, Hima Lima Primary Care Physician [phone] [facility]counter [facility] Date(s): 05/26/21 - 06/25/21 [facility] Adult [address] [place] [address]- Allergies, Adverse Reactions, Alerts Substance Reaction Severity Status NKA Active Immunizations Given and Recorded Vaccine Date Status Refusal Reason influenza virus vaccine, inactivated 09/27/20 Give n [...] Daily, # 90 tablet, 3 Refills, Maintenance, 09/27/20 14:27:00 EDT, Tablet, [id number], 168, cm, 09/27/20 14:09:00 EDT, Height, 94.5, kg, 01/17/20 8:18:00 EDT, Dry Weight Start Date: 09/27/20 Stop Date: 09/22/21 Status: Ordered Glucosamine By Mouth, 0 Refills, Maintenance, 08/04/18 11:54:11 EST Start Date: 08/04/18 Status: Ordered Lorazepam 0 Refills, Maintenance, 08/04/18 11:53:51 EST Start Date: 08/04/18 Status: Ordered Vascepa 1 g oral capsule 2 capsule = 2 Gm, By Mouth, 2 times a day, # 360 capsule, 3 Refills, Maintenance, 09/27/20 14:28:00EDT, [facility]/pharmacy #[id number], 168, cm, 09/27/20 14:09:00 EDT, Height, 94.5, kg, 01/17/20 8:18:00 EDT, Dry Weight Start Date: 09/27/20 Stop Date: 09/22/21 Status: Ordered Viagra 50 mg oral tablet 1 tablet = 50 mg, By Mouth, Daily, 1 hour before sexual activity, # 30 tablet, 11 Refills, Maintenance, 09/27/20 14:25:00 EDT, Tablet, [facility] # [facility], 168, cm, 09/27/20 14:09:00 EDT, Height, 94.5, kg, 01/17/20 8:18:00 EDT, Dry Weight Start Date: 09/27/20 Status: Ordered Problem List Condition Effective Dates [...]
--- OUTSIDE RECORDS SUMMARY | 2024-03-23 13:08 | XMS_ITS | Continuity of Care Document ---
Author Organization [facility] Address [address] [place] [address] [address] [place] [address]- Care Team Providers Care Home Aid Name Role Phone Mona NINO, Hima Lima Primary Care Physician [facility] Date(s): 06/23/21 - 07/23/21 [facility] [address] [place] [address]- Attending Physician: Nacho Osman Admitting Physician: AdmtrNacho Referring Physician: AdmtrNacho Allergies, Adverse Reactions, Alerts No Known Allergies [...] and right glute divided 2Result Comment: [06/16/2018] [facility] Medications atorvastatin 40 mg oral tablet 1 tablet = 40 mg, By Mouth, Daily, # 90 tablet, 3 Refills, Maintenance, 09/27/20 14:27:00 EDT, Tablet, [facility]/pharmacy #[id number], 168, cm, 09/27/20 14:09:00 EDT, Height, [...] 360 capsule, 3 Refills, Maintenance, 09/27/20 14:28:00EDT, [facility]/pharmacy #[id number], 168, cm, 09/27/20 14:09:00 EDT, Height, 94.5, kg, 01/17/20 8:18:00 EDT, Dry Weight Start Date: 09/27/20 Stop Date: 09/22/21 Status: Ordered Viagra 50 mg oral tablet 1 tablet = 50 mg, By Mouth, Daily, 1 hour before sexual activity, # 30 tablet, 11 Refills, Maintenance, 09/27/20 14:25:00 EDT, Tablet, [facility], 168, cm, 09/27/20 14:09:00 [...]
--- OUTSIDE RECORDS SUMMARY | 2024-03-23 13:08 | XMS_ITS | Continuity of Care Document ---
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 Start Date: 10/06/22 Stop Date: 10/01/23 Status: [...] a schedule II opioid drug., 168, cm, 040... Start Date: 10/06/22 Status: Ordered Vascepa 1 [...] Confirmed Active Obese class I Confirmed Active OA (osteoarthritis) of knee Confirmed Active Apnea, sleep Confirmed Active Steatohepatitis Confirmed Active 1Colonoscopy 2013 -, repeat 2023. Diagnosis Diagnosis Type Effective Dates Health Status Clinical Service Informant Glucose intolerance Discharge Diagnosis 10/06/22 HLD (hyperlipidemia) Discharge Diagnosis 10/06/22 Apnea, sleep Discharge Diagnosis 10/06/22 Vital Signs Most recent to oldest [Reference Range]: 1 Height 168 cm (10/06/22 1:50 PM) Weight 93.3 kg (10/06/22 1:50 PM) Oxygen Saturation [94-100 %] 98 % (10/06/22 1:50 PM) Pulse Rate [55-90 bpm] 74 bpm (10/06/22 1:50 PM) Body Mass Index [18.5-24.99 kg/m2] 33.06 kg/m2 *>HHI* (10/06/22 1:50 PM) Blood Pressure [90-138/55-84 mm Hg] 112/ 70mm Hg (10/06/22 1:50 PM) Mode of Delivery (Oxygen) Room air (10/06/22 1:50 PM) Blood pressure sites Arm, left (10/06/22 1:50 PM) Weight Obtained Via Standing scale (10/06/22 1:50 PM) Social History Social History Type Response Smoking Status Never (less than 100 in lifetime) entered on: 08/04/18 Sex Note * Lyubov Henrandez: PERFORM, SIGN, VERIFY Event Display: Patient Education/Instruction Authored Date: [id number] [facility] Clinical Summary Name ONELIA YARBROUGH Age 72 Years 1950 PCP [id number] Visit Date 10/06/2022 13:46:00 Additional Instructions: Scheduled Appointments?? Future Appointments ?No Future Appointments Scheduled Follow-Up Instructions ?? With: Address: When: Hima Dunn MD In 1 year Comments: Physical examination Diagnosis Hyperlipidemia, unspecified; Sleep apnea, unspecified; Other disorders of intestinal carbohydrate absorption Medications: Please continue your medications until treatment is completed or stopped by your provider. Discuss any questions related to medications with your provider. Medications to Continue Taking That Have Changed [id number] [address], [place] [id number], [phone] - Lorazepam (LORazepam 0.5 mg oral tablet) 1 tab(s) Oral Daily at Bedtime as needed Insomnia. Refills: 0. Next Dose: Medications to Continue with No Changes [id number], [address], [place] [id number], [phone] Atorvastatin (atorvastatin 40 mg oral tablet) 1 tab(s) Oral Daily for 90 Days. Refills: 3. Next Dose: icosapent (Vascepa 1 g oral capsule) 2 capsule Oral twice a day for 90 Days. Refills: 3. Next Dose: tadalafil (Cialis 5 mg oral tablet) 1 tab(s) Oral Daily for 90 Days. at the same time every day. Refills: 3. Next Dose: These medications were not printed or sent to your pharmacy Glucosamine Oral. Next Dose: Allergy Info:?? NKA Medications Given This Visit Future Orders ?Cervical Spine 3 Views or Less? Order Date:10/06/22?- Complete on or after?10/06/22 ?Shoulder Min 2 Views Left? Order Date:10/06/22?- Complete on or after?10/06/22 ?PSA? Order Date:10/06/22?- Complete on or after?10/06/22 ?Comprehensive Metabolic Panel? Order Date:10/06/22?- Complete on or after?10/06/22 ?Lipid Panel? Order Date:10/06/22?- Complete on or after?10/06/22 ?CBC? Order Date:10/06/22?- Complete on or after?10/06/22 ?Thyroid Panel? Order Date:10/06/22?- Complete on or after?10/06/22 Vital Signs Height 168 cm Weight 93.3 kg BMI 33.06 kg/m2 Blood Pressure 112 mm Hg/70 mm Hg Temperature Pulse Rate 74 bpm Respiratory Rate 02 Sat Mode of Delivery 98 %/Room air You can now view a summary of your hospital visit from the comfort of your home through a free online portal called [employer]. [employer] is a website that allows you to securely view your medical information including discharge summary, medications and follow-up visits. ??You can alsosend a secure electronic message to your doctor???s office to request appointments, renew medications or just ask a question. You can enroll at [email or web address] or register during your next office visit. Disclaimer:?? The information provided is of a general nature and is intended to be used in conjunction with the recommendations and advice of your health care practitioner. ??Every effort has been made to ensure that the information provided is accurate and complete at the time it is provided to you however, as your needs change, or, as new ??information becomes available, different or additional instructions may be required. If you have questions, please consult with your primary care provider or pharmacist, as appropriate. ??This information is not intended to serve as substitution for assessment and evaluation by a qualified health care provider. If you do not have a primary care provider, you may find a [facility] provider by calling [facility] at [phone]. For information about the plan of care including goals and instructions for your diagnosis, please see the patient education orders section of this document. Patient Education Materials?? The content of this educational material or handout may have been modified, supplemented, or adapted from its original content and format to support your individualized medical care. Patient Care team information Care Team Personnel Name: Mona NINO, Hima Lima Position: [facility] Primary Care Physician Member Role: PCP Address: Address: [address] [place] [address] [place] Care Team Related Persons Name: ZENON BENJAMIN Address: home [address] [place] [address]
--- OUTSIDE RECORDS SUMMARY | 2024-03-23 13:08 | XMS_ITS | Continuity of Care Document ---
Author Organization [facility] Kenneth Ivan lt Address [address] [place] [address]- Care Team Providers Care Addiction Medicine Physician Name Role Phone Mona NINO, Hima Lima Primary Care Physician Encounter [facility] Date(s): 01/04/20 - 01/11/20 [facility] [address] [place] [address]- [facility] Encounter Diagnosis Numbness and tingling of leg(Discharge Diagnosis) - 01/04/20 Skin sensitivity(Discharge Diagnosis) - 01/04/20 Attending Physician: Gisele Marx NP Allergies, Adverse Reactions, Alerts Substance Reaction Severity Status NKA Active Immunizations Given and Recorded Vaccine Date Status Refusal Reason rabies vaccine, human diploid cell 01/10/20 Given [...] and right glute divided 2Result Comment: [06/16/2018] [facility] [address] Medications atorvastatin 40 mg oral tablet 1 tablet = 40 mg, By Mouth, Daily, # 90 tablet, 3 Refills, Maintenance, 08/10/19 11:25:00 EST, Tablet, [facility]/pharmacy #[id number], 172.72, cm, 08/10/19 10:40:00 EST, [...] knee(Confirmed) Active Apnea, sleep(Confirmed) Active Steatohepatitis(Confirmed) Active Diagnosis Diagnosis Type Effective Dates Health Status Clinical Service Informant Numbness and tingling of leg Discharge Diagnosis 01/04/20 Skin sensitivity Discharge Diagnosis 01/04/20 Vital Signs Most recent to oldest [Reference Range]: 1 Height 173 cm (01/04/20 10:27 AM) Weight 94.6 kg (01/04/20 10:27 AM) Oxygen Saturation [94-100 %] 96 % (01/04/20 10:27 AM) Pulse Rate [55-90 bpm] 66 bpm (01/04/20 10:27 AM) Body Mass Index [18.5-24.99] 31.61 *>HHI* (01/04/20 10:27 AM) Blood Pressure [90-138/55-84 mm Hg] 118/ 70mm Hg (01/04/20 10:27 AM) Temperature [96.8-100.4 DegF] 98.1 DegF (01/04/20 10:27 AM) Blood pressure sites Arm, left (01/04/20 10:27 AM) Temperature Route Oral (01/04/20 10:27 AM) Social History Social History Type Response Smoking Status Never (less than 100 in lifetime) entered on: 08/04/18 Sex
--- OUTSIDE RECORDS SUMMARY | 2024-03-23 13:08 | XMS_ITS | Continuity of Care Document ---
Author Organization [facility] Address [address] [place] [address]- Care Team Providers Care Emergency Veterinarian Name Role Phone Hima Dunn MD Primary Care Physician En[place] [facility] [place] Date(s): 03/25/23 - 04/24/[address] [address]- Attending Physician: AdmNacho todd Admitting Physician: Admtr, Ar8 Referring Physician: Admtr, [...] and right glute divided 2Result Comment: [06/16/2018] [facility] drive Medications atorvastatin 40 mg oral tablet 1 tablet = 40 mg, By Mouth, Daily, # 90 tablet, 3 Refills, Maintenance, 10/06/22 14:19:00 EDT, Tablet, [facility]/pharmacy #[id number], 168, cm, 10/06/22 13:50:00 EDT, [...] 0 Refills, Maintenance, 04/19/23 16:45:00 EDT, Tablet, [facility]/pharmacy #[id number], Partial fill upon patient request if the prescription is for a schedule II opioid drug., 172, cm, 04/04... Start Date: 04/19/23 Status: Ordered Vascepa 1 g oral capsule 2 capsule = 2 Gm, By Mouth, 2 times a day, # 360 capsule, 3 Refills, Maintenance, 10/06/22 14:19:00EDT, [facility]/pharmacy #[id number], 168, cm, 10/06/22 13:50:00 EDT, [...] Personnel Name: Mona NINO, Hima Lima Position: [facility] Physician - Primary Care Member Role: PCP Address: Address: [address] [place] [address]- Care Team Related Persons Name: BENJAMIN Address: [address] [address]
--- OUTSIDE RECORDS SUMMARY | 2024-03-23 13:08 | XMS_ITS | Continuity of Care Document ---
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 Adult [address] [place] [address]- Allergies, Adverse Reactions, Alerts No Known Allergies [...] 0 Refills, Maintenance, 04/19/23 16:45:00 EDT, Tablet, [id number], [facility] upon [...] (less than 100 in lifetime) entered on: 1/31/19 Sex Patient Care team information Care Team Personnel Name: Mona NINO, Hima Lima Position: S Physician - Primary Care Member Role: PCP Address: Address: [address] [place] [address]- Care Team Related Persons Name: ZENON BENJAMIN Address: home [address] [place] [address]
--- OUTSIDE RECORDS SUMMARY | 2024-03-23 13:08 | XMS_ITS | Continuity of Care Document ---
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 Name Role Phone Hima Dunn MD Primary Care Physician Encounter [facility] Date(s): 02/13/23 - 02/13/[address] [address]- Encounter Diagnosis Hand pain(Final) - 02/13/23 Discharge Disposition: A-D/C Home Attending Physician: Charleen NINO, Carlitos Gunn Admitting Physician: Charleen NINO, Carlitos Gunn Referring Physician: Not on Staff, Referring MD Allergies, Adverse Reactions, Alerts No Known [...] 3 Refills, Maintenance, 10/06/22 14:19:00 EDT, Tablet, [facility]/pharmacy #[id number], 168, cm, 10/06/22 13:50:00 EDT, Height Start Date: 10/06/22 Stop Date: 10/01/23 Status: Ordered cephalexin monohydrate 500 mg oral capsule 1 capsule = 500 mg, By Mouth, 4 times a day, for 7 days, # 28 capsule, 0 Refills, Acute 02/20/23 11:16:00 EDT, 02/13/23 11:16:00 EDT, Capsule, [facility]/pharmacy #[id number], Partial fill upon patient request ifthe prescription is for a schedule II opioid drug.,... Start Date: 02/13/23 Stop Date: 02/20/23 Status: Ordered Cialis 5 mg oral tablet [...] cm, 0... Start Date: 10/06/22 Status: Ordered predniSONE 20 mg oral tablet 3 tablet = 60 mg, By Mouth, Daily, for 5 days, # 15 tablet, 0 Refills, Acute 02/18/23 11:16:00 EDT,08/12/23 11:16:00 EDT, Tablet, [facility]/pharmacy #[id number], Partial fill upon patient request if the prescription is for a schedule II opioid drug., 172, cm, 08... Start Date: 02/13/23 Stop Date: 02/18/23 Status: Ordered Vascepa 1 g oral capsule [...] Most recent to oldest [Reference Range]: 1 2 Height 172 cm (02/13/23 11:17 AM) 172 cm (02/13/23 10:46 AM) Weight 90.8 kg (02/13/23 11:17 AM) 90.8 kg (02/13/23 10:46 AM) Oxygen Saturation [94-100 %] 97 % (02/13/23 11:17 AM) 98 % (02/13/23 10:46 AM) Pulse Rate [55-90 bpm] 51 bpm *L* (02/13/23 11:17 AM) 58 bpm (02/13/23 10:46 AM) Body Mass Index [18.5-24.99 kg/m2] 30.69 kg/m2 *>HHI* (02/13/23 11:17 AM) Blood Pressure [90-138/55-84 mm Hg] 126/ 81mm Hg (02/13/23 11:17 AM) 132/75mm Hg (02/13/23 10:46 AM) Respiratory Rate [16-30 br/min] 18 br/mi n (02/13/23 11:17 AM) 20 br/min (02/13/23 10:46 AM) Temperature [96.8-100.4 DegF] 97.0 DegF (02/13/23 10:46 AM) Mode of Delivery (Oxygen) Room air (02/13/23 11:17 AM) Room air (02/13/23 10:46 AM) Blood pressure sites Arm, left (02/13/23 11:17 AM) Arm, left (02/13/23 10:46 AM) Temperature Route Temporal (02/13/23 10:46 AM) Dry Weight 90.8 kg (02/13/23 11:17 AM) 90.8 kg (02/13/23 10:46 AM) Weight Obtained Via Standing scale (02/13/23 10:46 AM) Dry Weight Obtained Via Standing scale (02/13/23 10:46 AM) Social History Social History Type Response Smoking Status Never (less than 100 in lifetime) entered on: 08/04/18 Sex Note * Charleen NINO, Carlitos Gunn: PERFORM Event Display: Patient Education Leaflets Authored Date: [id number] Gout Diet ?? [id number] Gout Diet Gout is a painful condition caused by an excess of uric acid, a waste product made by the body. Uric acid forms crystals that collect in the joints. The immune response to these crystals brings on symptoms of joint pain and swelling. This is called a gout attack. Often, medicines and diet changes are combined to manage gout. Below are some guidelines for changing your diet to help you manage goutand prevent attacks. Your healthcare provider will help you determine the best eating plan for you. Eating to manage gout Weight loss for those who are overweight may help reduce gout attacks. Eat less of these foods Eating too many foods containing purines may raise the levels of uric acid in your body. This raises your risk for a gout attack. Try to limit these foods and drinks: ??? Alcohol, such as beer and red wine. You may be told to avoid alcohol completely. ??? Soft drinks that contain sugar or high fructose corn syrup ??? Certain fish, including anchovies, sardines, fish eggs, and thompson ??? Shellfish ??? Certain meats, such as red meat, hot dogs, luncheon meats, and turkey ??? Organ meats, such as liver, kidneys, and sweetbreads ??? Legumes, such as dried beans and peas ??? Other high fat foods such as gravy, whole milk, and high fat cheeses ??? Vegetables suchas asparagus, cauliflower, spinach, and mushrooms used to be thought to contribute to an increased risk??for a gout attack, but recent studies show that high purine vegetables don't increase the riskfor a gout attack. Eat more of these foods Other foods may be helpful for people with gout. Add some of these foods to your diet: ??? Cherriescontain chemicals that may lower uric acid. ??? Lorman fatty acids. These are found in some fatty fish such as salmon, certain oils (flax, olive, or nut), and nuts themselves. Lorman fatty acids may help prevent inflammation due to gout. ??? Dairy products that are low-fat or fat-free, such as cheeseand yogurt ??? Complex carbohydrate foods, including whole grains, brown rice, oats, and beans ??? Coffee, in moderation ??? Water, approximately 64 ounces per day ?? Follow-up care Follow up with your healthcare provider as advised. ?? When to get medical advice Call your healthcare provider right away??if any of these occur: ??? Return of gout symptoms, usually at night ??? Severe pain, swelling, and heat in a joint, especially the base of the big toe ??? Affected joint is hard to move ??? Skin of the affected joint is purple or red ??? Fever of 100.4??F (38??C) or higher, or as advised by your provider ??? Pain that??doesn't get better even with??prescribed medicine? Last Reviewed Date: 2021 ?? [employer]. All rights reserved. This information is not intended as a substitute for professional medical care. Always follow your healthcare professional's instructions. ?? * Charleen NINO, Carlitos Gunn: PERFORM Event Display: Patient Education Leaflets Authored Date: [id number] Gout ?? [id number] Gout Gout is an inflammation of a joint caused by an inflammatory response to gout crystals in the jointfluid. This occurs when there is excess??uric acid. Uric acid is a normal waste product in the body. It builds up in the body when the kidneys can't filter enough of it from the blood. This may occurwith age. It's also associated with kidney disease. Gout occurs more often in people with obesity, diabetes, high blood pressure,??or??high??levels of??fats in the blood. It may run in families. Gouttends to come and go. A flare up of gout is called an attack. Drinking alcohol or eating certain foods (such as shellfish or??foods with additives such as high-fructose corn syrup) may increase uric acid levels in the blood and cause a gout attack. During a gout attack, the affected joint may become hot, red, swollen, and painful. If you have hadone attack of gout, you are likely to have another. An attack of gout can be treated with??medicine. If these attacks become frequent,??a daily medicine may be prescribed to help the kidneys??remove uric acid from the body. Home care During a gout attack: ??? Contact your healthcare provider for advice and therapy options at the early stages of a gout flare. Treating the flare right away can prevent it from getting worse. Your healthcare provider can prescribe medicine to improve pain and shorten your gout flare. ??? Rest painful joints. If gout affects the joints of your foot or leg, you may want to use crutches for the first few days to keep from bearing weight on the affected joint. ??? When sitting or lying down, raise the painful joint to a level higher than your heart. ??? Apply an ice pack (ice cubes in a plastic bag wrapped in a thin towel) over the injured area for 20 minutes every 1 to 2 hours the first day for pain relief. Continue this 3 to 4 times a day for swelling and pain. ??? Avoid alcohol and foods listed below (see??Preventing attacks) during a gout attack. Drink extra fluid to help flush the uricacid through your kidneys. ??? If you were prescribed a medicine to treat gout, take it as your healthcare provider has instructed. Don't skip doses. ??? Take??anti-inflammatory??medicine as directedby your healthcare provider. If you have chronic liver or kidney disease or ever had a stomach ulcer or digestive tract bleeding, talk with your doctor before using these medicines. ??? If pain medicines have been prescribed, take them exactly as directed. ? Preventing attacks ??? Follow up with your healthcare provider to assess if you would benefit from daily medicine to prevent gout flares. ??? Limit or stop alcohol??use. Excess alcohol intake can cause a gout attack. ??? Limit these foods and drinks: o Organ meats, such as kidneys and liver o Certain seafoods (anchovies, sardines, shrimp, scallops, thompson, mackerel) o Wild game, meat extracts and meat gravies o Foods and drinks sweetened with high-fructose corn syrup, such as sodas ??? Eat a healthy diet including low-fat and nonfat dairy, whole grains, and vegetables. ??? If you are??overweight, talk to your healthcare provider about a weight reduction plan. Avoid??fasting??or??extreme low calorie diets??(less than 900 calories per??day). This will increase uric acid levels in the body.??? If you??have diabetes??or??high blood pressure, work with your provider to manage these conditions. ??? Protect the joint from injury. Wear good-fitting socks and shoes. Injury can trigger a goutattack. ?? Follow-up care Follow up with your healthcare provider, or as advised.? When to get medical advice Call your healthcare provider if you have any of the following: ??? Fever over??100.4??F (38.??C)??with worsening joint pain ??? Increasing redness around the joint ??? Pain developing in another joint ??? Repeated vomiting, abdominal pain, or small amounts of blood in the vomit or stool (black or red color) Call 911 Call 911, or get immediate medical care if any of these occur: ??? Large amounts of blood in the vomit or stool (black or red color) ??? Fainting ?? Last Reviewed Date: 2021 ?? 2810-5246 [employer]. All rights reserved. This information is not intended as a substitute for professional medical care. Always follow your healthcare professional's instructions. ?? Patient Care team information Care Team Personnel Name: Mona NINO, Hima Montero: [facility] Physician - Primary Care Member Role: PCP Address: Address: [address] [place] [address]- [place] Name: Charleen NINO, Carlitos Gunn Position: [facility] Resident Member Role: Admitting Physician Address: Address: [address] [place] [address]- [place] Name: Matilda Donald RN Position: [facility] ED RN W/OE and Tasks Member Role: Patient Care Provider Name: Velma Santo Position: [facility] ED TA [facility] Member Role: [employer] Superintendent Care Team Related Persons Name: BENJAMIN YARBROUGH Address: home [address] [place] [address]
--- OUTSIDE RECORDS SUMMARY | 2024-03-23 13:08 | XMS_ITS | Continuity of Care Document ---
Author Organization [facility] Address [address] [place] [address]- Care Team Providers Care Scorer Single Name Role Phone Mona NINO, Hima Lima Primary Care Physician Encounter [facility] Date(s): 01/10/20 - 01/10/[address] [address]- [place] Discharge Disposition: A-D/C Home Attending Physician: [...] and right glute divided 2Result Comment: [06/16/2018] [facility] [address] Medications atorvastatin 40 [...] oldest [Reference Range]: 1 Height 173 cm (01/10/20 7:50 AM) Weight 93 kg (01/10/20 7:50 AM) Oxygen Saturation [94-100 %] 98 % (01/10/20 7:50 AM) Pulse Rate [55-90 bpm] 55 bpm (01/10/20 7:50 AM) Blood Pressure [90-138/55-84 mm Hg] 124/ 78mm Hg (01/10/20 7:50 AM) Respiratory Rate [16-30 br/min] 16 br/mi n (01/10/20 7:50 AM) Temperature [96.8-100.4 DegF] 98.0 DegF (01/10/20 7:50 AM) Mode of Delivery (Oxygen) Room air (01/10/20 7:50 AM) Blood pressure sites Arm, right (01/10/20 7:50 AM) Temperature Route Temporal (01/10/20 7:50 AM) Dry Weight 93 kg (01/10/20 7:50 AM) Social History Social History Type Response Smoking Status Never (less than 100 in lifetime) entered on: 08/04/18 Sex
--- OUTSIDE RECORDS SUMMARY | 2024-03-23 13:08 | XMS_ITS | Continuity of Care Document ---
Author Organization [facility] Address [address] [place] [address]- Care Team Providers Care Sleeve Presser Operator Name Role Phone Hima Dunn MD Primary Care Physician Encounter [facility] Date(s): 01/03/20 - 02/02/20 [facility] Adult [address] [place] [address]- [facility] Allergies, Adverse Reactions, Alerts Substance Reaction Severity [...] Comment: [06/16/2018] [facility] [employer] Medications atorvastatin 40 mg oral tablet 1 tablet = 40 mg, By Mouth, Daily, # 90 tablet, 3 Refills, Maintenance, 08/10/19 11:25:00 EST, Tablet, [facility]/pharmacy #[id number], 172.72, cm, 08/10/19 10:40:00 [...]
--- OUTSIDE RECORDS SUMMARY | 2024-03-23 13:08 | XMS_ITS | Continuity of Care Document ---
Author Organization [facility] Address [address] [place] [address]- Care Team Providers Care Silver Solderer Name Role Phone Hima Dunn MD Primary Care Physician [phone] Encounter [facility] Date(s): 10/11/19 - 10/18/19 [facility] Adult [address] [place] [address]- [facility] Attending Physician: Hima Dunn MD Allergies, Adverse [...] vaccine 1 06/07/18 Recorded 1Result Comment: [06/16/2018] [facility] Medications atorvastatin 40 mg oral tablet 1 tablet = 40 mg, By Mouth, Daily, # 90 tablet, 3 Refills, Maintenance, 08/10/19 11:25:00 EST, Tablet, [facility]/pharmacy #[id number], 172.72, cm, 08/10/19 10:40:00 EST, [...]
--- OUTSIDE RECORDS SUMMARY | 2024-03-23 13:08 | XMS_ITS | Continuity of Care Document ---
Author Organization [facility] Address [address] [place] [address]- Care Team Providers Care Manufacturing Planner Name Role Phone Hima Dunn MD Primary Care Physician [phone] Encounter [facility] Date(s): 04/27/23 - 05/27/23 [facility] Adult [address] [place] [address]- Allergies, Adverse Reactions, Alerts No Known Allergies [...] Care Member Role: PCP Address: Address: [address] [place] [address]- Care Team Related Persons Name: BENJAMIN YARBROUGH Address: home [address] [place] [id number]
--- OUTSIDE RECORDS SUMMARY | 2024-03-23 13:08 | XMS_ITS | Continuity of Care Document ---
Author Organization [facility] Address [address] [place] [address]- Care Team Providers Care Explosives Engineer Name Role Phone Mona NINO, Hima Lima Primary Care Physician Encounter [facility] Date(s): 09/11/19 - 09/21/19 [facility] Adult [address] [place] [address]- [facility] Attending Physician: Admperez, Amando8 Admitting Physician: AdmtrNacho Referring Physician: Admtr, Ar8 Allergies, Adverse Reactions, [...] vaccine 1 06/07/18 Recorded 1Result Comment: [06/16/2018] [facility] Medications atorvastatin 40 mg oral tablet 1 tablet = 40 mg, By Mouth, Daily, # 90 tablet, 3 Refills, Maintenance, 08/10/19 11:25:00 EST, Tablet, [facility]/pharmacy #[id number], 172.72, cm, 08/10/19 10:40:00 EST, [...]
--- OUTSIDE RECORDS SUMMARY | 2024-03-23 13:08 | XMS_ITS | Continuity of Care Document ---
Author Organization [facility] Address [address] [place] [address]- Care Team Providers Care Drilling Machine Operator Name Role Phone Hima Dunn MD Primary Care Physician Encounter [facility] Date(s): 09/27/20 - 10/04/20 [facility] Adult [address] [place] [address]- Attending Physician: Hima Dunn MD Allergies, Adverse [...] 360 capsule, 3 Refills, Maintenance, 09/27/20 14:28:00EDT, [facility]/pharmacy #[id number], 168, cm, 09/27/20 14:09:00 EDT, Height, 94.5, kg, 01/17/20 8:18:00 EDT, Dry Weight Start Date: 09/27/20 Stop Date: 09/22/21 Status: Ordered Viagra 50 mg oral tablet 1 tablet = 50 mg, By Mouth, Daily, 1 hour before sexual activity, # 30 tablet, 11 Refills, Maintenance, 09/27/20 14:25:00 EDT, Tablet, [facility] # 302, 168, cm, 09/27/20 14:09:00 [...] Steatohepatitis(Confirmed) Active 1Colonoscopy 2013 -, repeat 2023. Vital Signs Most recent to oldest [Reference Range]: 1 Height 168 cm (09/27/20 2:09 PM) Weight 89.2 kg (09/27/20 2:09 PM) Oxygen Saturation [94-100 %] 98 % (09/27/20 2:09 PM) Pulse Rate [55-90 bpm] 66 bpm (09/27/20 2:09 PM) Body Mass Index [18.5-24.99] 31.6 *>HHI* (09/27/20 2:09 PM) Blood Pressure [90-138/55-84 mm Hg] 122/ 60mm Hg (09/27/20 2:09 PM) Mode of Delivery (Oxygen) Room air (09/27/20 2:09 PM) Blood pressure sites Arm, left (09/27/20 2:09 PM) Weight Obtained Via Standing scale (09/27/20 2:09 PM) Social History Social History Type Response Smoking Status Never (less than 100 in lifetime) entered on: 08/04/18 Sex
--- OUTSIDE RECORDS SUMMARY | 2024-03-23 13:08 | XMS_ITS | Continuity of Care Document ---
Author Organization [facility] Address [address] [place] [address]- Care Team Providers Care Market Analyst Name Role Phone Hima Dunn MD Primary Care Physician Encounter [facility] Date(s): 10/08/20 - 11/07/20 [facility] Adult [address] [place] [address]- Allergies, Adverse Reactions, Alerts Substance Reaction Severity [...] and right glute divided 2Result Comment: [06/16/2018] [facility] [address] Medications atorvastatin 40 mg oral tablet 1 tablet = 40 mg, By Mouth, Daily, # 90 tablet, 3 Refills, Maintenance, 09/27/20 14:27:00 EDT, Tablet, [facility]/pharmacy #[id number], 168, cm, 09/27/20 14:09:00 [...] 360 capsule, 3 Refills, Maintenance, 09/27/20 14:28:00EDT, [facility]/pharmacy #[id number], 168, cm, 09/27/20 14:09:00 EDT, Height, 94.5, kg, 01/17/20 8:18:00 EDT, Dry Weight Start Date: 09/27/20 Stop Date: 09/22/21 Status: Ordered Viagra 50 mg oral tablet 1 tablet = 50 mg, By Mouth, Daily, 1 hour before sexual activity, # 30 tablet, 11 Refills, Maintenance, 09/27/20 14:25:00 EDT, Tablet, [facility] # 302, 168, cm, 09/27/20 14:09:00 [...]
--- OUTSIDE RECORDS SUMMARY | 2024-03-23 13:08 | XMS_ITS | Continuity of Care Document ---
Author Organization [facility] Address [address] [place] [address]- Care Team Providers Care Dried Yeast Supervisor Name Role Phone Hima Dunn MD Primary Care Physician [facility]counter [facility] Date(s): 03/05/22 - 04/04/[address] [address] Attending Physician: AdmNacho todd Admitting Physician: AdmtrNacho Referring Physician: Admtr, Ar8 [...] and right glute divided 2Result Comment: [06/16/2018] [facility] [address] Medications atorvastatin 40 mg oral tablet 1 tablet = 40 mg, By Mouth, Daily, # 90 tablet, 3 Refills, Maintenance, 09/29/21 14:02:00 EDT, Tablet, [facility]/pharmacy #[id number], 168, cm, 09/29/21 13:34:00 EDT, Height, 94.5, kg, 01/17/20 8:18:00 EDT, Dry Weight Start Date: 09/29/21 Stop Date: 09/24/22 Status: Ordered Cialis 5 mg oral tablet 1 tablet = 5 mg, By Mouth, Daily, at the same time every day, # 90 tablet, 3 Refills, Maintenance, 09/29/21 14:03:00 EDT, Tablet, [facility] # [id number], Partial fill upon patient [...] 360 capsule, 3 Refills, Maintenance, 09/29/21 14:02:00EDT, [facility]/pharmacy #[id number], 168, cm, 09/29/21 13:34:00 EDT, Height, 94.5, kg, 01/17/20 8:18:00 EDT, Dry Weight Start Date: 09/29/21 Stop Date: 09/24/22 Status: Ordered Problem List Condition Confirmation Course Effective Dates Status H ealth Status Informant BPPV (benign paroxysmal positional vertigo) Confirmed Active Chronic low back pain Confirmed Active Glucose intolerance Confirmed Active [...] on: 08/04/18 Sex Patient Care team information Personnel Name: Mona NINO, Hima Lima Address: Address: [address] [place] [id number]
--- OUTSIDE RECORDS SUMMARY | 2024-03-23 13:08 | XMS_ITS | Continuity of Care Document ---
Author Organization [facility] Address [address] [place] [address]- Care Team Providers Care High School Social Science Teacher Name Role Phone Hima Dunn MD Primary Care Physician [facility]counter [facility] Date(s): 04/19/23 - 04/26/23 [facility] Adult [address] [place] [address]- Encounter Diagnosis Grief(Discharge Diagnosis) - 04/19/23 Attending Physician: Not on Staff, Attending MD [...] 3 Refills, Maintenance, 10/06/22 14:19:00 EDT, Tablet, [facility]/pharmacy #[id number], 168, cm, 10/06/22 13:50:00 EDT, Height [...] 0 Refills, Maintenance, 04/19/23 16:45:00 EDT, Tablet, [facility]/pharmacy #[id number], Partial fill upon patient request if the prescription is for a schedule II opioid drug., 172, cm, 04/04... Start Date: 04/19/23 Status: Ordered Vascepa 1 g oral capsule 2 capsule = 2 Gm, By Mouth, 2 times a day, # 360 capsule, 3 Refills, Maintenance, 10/06/22 14:19:00EDT, [facility]/pharmacy #[id number], 168, cm, 10/06/22 13:50:00 EDT, Height [...] Dates Health Status Clini colleen Service Informant Grief Discharge Diagnosis 04/19/23 Vital Signs Most recent to oldest [Reference Range]: 1 2 Height 172 cm (04/20/23 2:13 PM) 172 cm (04/19/23 4:02 PM) Weight 92.0 kg (04/20/23 2:13 PM) 92.0 kg (04/19/23 4:02 PM) Oxygen Saturation [94-100 %] 98 % (04/19/23 4:02 PM) Pulse Rate [55-90 bpm] 62 bpm (04/19/23 4:02 PM) Body Mass Index [18.5-24.99 kg/m2] 31.1 kg/m2 *>HHI* (04/19/23 4:02 PM) Blood Pressure [90-138/55-84 mm Hg] 118/ 64mm Hg (04/19/23 4:02 PM) Respiratory Rate [16-30 br/min] 16 br/mi n (04/19/23 4:02 PM) Temperature [96.8-100.4 DegF] 98.1 DegF (04/19/23 4:02 PM) Mode of Delivery (Oxygen) Room air (04/19/23 4:02 PM) Blood pressure sites Arm, right (04/19/23 4:02 PM) Temperature Route Oral (04/19/23 4:02 PM) Weight Obtained Via Standing scale (04/19/23 4:02 PM) Social History Social History Type Response Smoking Status Never (less than 100 in lifetime) entered on: 08/04/18 Sex EKG study * Event Display: ECG 12-Lead Authored Date: Please click on pdf link to open report * Event Display: ECG 12-Lead Authored Date: Ventricular Rate: 62 BPM Atrial Rate: 62 BPM P-R Interval: 184 ms QRS Duration: 84 ms Q-T Interval: 388 ms QTC Calculation(Bazett): 393 ms P Belton: 52 degrees R Belton: -11 degrees T Belton: 30 degrees Normal sinus rhythm Possible Left atrial enlargement Borderline ECG When compared with ECG of 05-AUG-2010 12:47, No significant change was found Confirmed by BRIAN BERNAL MD ([id number]) on 04/20/2023 5:21:51 PM [place]: DOLORES NINO,BRIAN Patient Care team information Care Team Personnel Name: Mona NINO, Hima Lima Position: S Physician - Primary Care Member Role: PCP Address: Address: [address] [place] [address]- Care Team Related Persons Name: BENJAMIN YARBROUGH Address: [address] [address]
--- OUTSIDE RECORDS SUMMARY | 2024-03-23 13:08 | XMS_ITS | Continuity of Care Document ---
Author Organization [facility] Address [address] [place] [address] [address] [place] [address]- Care Team Providers Care Pantry Goods Maker Name Role Phone Hima uDnn MD Primary Care Physician [facility] Date[facility]): [facility]/21 - 06/30/21 [facility] [address] [place] [address] Drive [address] [place] [address]- Attending Physician: Arnaldo Dee MD Referring Physician: Hima Dunn MD Allergies, Adverse [...] and right glute divided 2Result Comment: [06/16/2018] [facility] [address] Medications atorvastatin 40 mg oral tablet 1 tablet = 40 mg, By Mouth, Daily, # 90 tablet, 3 Refills, Maintenance, 09/27/20 14:27:00 EDT, Tablet, [facility]/pharmacy #[id number], 168, cm, 09/27/20 14:09:00 EDT, Height, [...] 360 capsule, 3 Refills, Maintenance, 09/27/20 14:28:00EDT, [facility]/pharmacy #[id number], 168, cm, 09/27/20 14:09:00 EDT, Height, 94.5, kg, 01/17/20 8:18:00 EDT, Dry Weight Start Date: 09/27/20 Stop Date: 09/22/21 Status: Ordered Viagra 50 mg oral tablet 1 tablet = 50 mg, By Mouth, Daily, 1 hour before sexual activity, # 30 tablet, 11 Refills, Maintenance, 09/27/20 14:25:00 EDT, Tablet, [facility] # 302, 168, cm, 09/27/20 14:09:00 [...] oldest [Reference Range]: 1 Height 168 cm (06/23/21 10:40 AM) Weight 94 kg (06/23/21 10:40 AM) Body Mass Index [18.5-24.99] 33.3 *>HHI* (06/23/21 10:40 AM) Temperature [96.8-100.4 DegF] 98.2 DegF (06/23/21 10:40 AM) Social History Social History Type Response Smoking Status Never (less than 100 in lifetime) entered on: 08/04/18 Sex
--- OUTSIDE RECORDS SUMMARY | 2024-03-23 13:08 | XMS_ITS | Continuity of Care Document ---
Author Organization [facility] Address [address] [place] [address]- Care Team Providers Care Cement Mason Name Role Phone Mona NINO, Hima Lima Primary Care Physician Encounter [facility] Date(s): 01/03/20 - 01/03/[address] [address]- [place] Discharge Disposition: A-D/C Home Attending Physician: Lyn Guzman MD Admitting Physician: Lyn Guzman MD Referring Physician: Not on Staff, Referring MD Allergies, Adverse Reactions, Alerts Substance Reaction Severity Status NKA Active Immunizations Given and Recorded Vaccine Date Status Refusal Reason rabies vaccine, human diploid cell 01/03/20 Given [...] capsule, 3 Refills, Maintenance, 08/10/19 11:25:00EST, Capsule, [facility]/pharmacy #[id number], 172.72, cm, 08/10/19 10:40:00 EST, Height [...] to oldest [Reference Range]: 1 2 Height 173 cm (01/03/20 7:26 PM) 173 cm (01/03/20 6:06 PM) Weight 92 kg (01/03/20 7:26 PM) 92 kg (01/03/20 6:06 PM) Oxygen Saturation [94-100 %] 97 % (01/03/20 6:06 PM) Pulse Rate [55-90 bpm] 70 bpm (01/03/20 6:06 PM) Body Mass Index [18.5-24.99] 30.74 *>HHI* (01/03/20 7:26 PM) Blood Pressure [90-138/55-84 mm Hg] 137/ 66mm Hg (01/03/20 7:26 PM) 144/70mm Hg *H* (01/03/20 6:06 PM) Respiratory Rate [16-30 br/min] 16 br/mi n (01/03/20 7:26 PM) 16 br/min (01/03/20 6:06 PM) Temperature [96.8-100.4 DegF] 98.1 DegF (01/03/20 6:06 PM) Mode of Delivery (Oxygen) Room air (01/03/20 6:06 PM) Blood pressure sites Arm, left (01/03/20 6:06 PM) Dry Weight 92 kg (01/03/20 7:26 PM) 92 kg (01/03/20 6:06 PM) Dry Weight Obtained Via Standing scale (01/03/20 6:06 PM) Social History Social History Type Response Smoking Status Never (less than 100 in lifetime) entered on: 08/04/18 Sex
--- OUTSIDE RECORDS SUMMARY | 2024-03-23 13:08 | XMS_ITS | Continuity of Care Document ---
Author Organization [facility] Kenneth Ivan lt Address [address] [place] [address]- Care Team Providers Care Binding Cutter Name Role Phone Mona NINO, Hima Lima Primary Care Physician [phone] [facility] 10/17/21 - 11/16/21 [facility] Adult [address] [place] [address]- Allergies, Adverse Reactions, Alerts No Known Allergies [...] 3 Refills, Maintenance, 09/29/21 14:02:00 EDT, Tablet, [facility]/pharmacy #[id number], 168, cm, 09/29/21 13:34:00 EDT, Height, 94.5, kg, 01/17/20 8:18:00 EDT, Dry Weight Start Date: 09/29/21 Stop Date: 09/24/22 Status: Ordered Cialis 5 mg oral tablet 1 tablet = 5 mg, By Mouth, Daily, at the same time every day, # 90 tablet, 3 Refills, Maintenance, 09/29/21 14:03:00 EDT, Tablet, [facility] # 302, Partial fill upon patient [...] capsule, Refills 12, Route to Pharmacy Electronically, [id number], 168, cm, 09/29/21 13:34:00 EDT, Height, 94.5, kg, 01/17/20 8:18:00 EDT, Dry Weight Start Date: 11/10/21 Status: Ordered Vascepa 1 g oral capsule 2 capsule = 2 Gm, By Mouth, 2 times a day, # 360 capsule, 3 Refills, Maintenance, 09/29/21 14:02:00EDT, [facility]/pharmacy #[id number], 168, cm, 09/29/21 13:34:00 EDT, [...]
--- OUTSIDE RECORDS SUMMARY | 2024-03-23 13:08 | XMS_ITS | Continuity of Care Document ---
Author Organization [facility] Kenneth Ivan lt Address [address] [place] [address]- Care Team Providers Care Barometers Calibrator Name Role Phone Mona NINO, Hima Lima Primary Care Physician [facility] Date[facility]s): 10/16/21 - 11/15/21 [facility] Adult [address] [place] [address]- Allergies, Adverse Reactions, Alerts No Known Allergies [...] 3 Refills, Maintenance, 09/29/21 14:02:00 EDT, Tablet, [facility]/pharmacy #[id number], 168, cm, 09/29/21 13:34:00 EDT, Height, 94.5, kg, 01/17/20 8:18:00 EDT, Dry Weight Start Date: 09/29/21 Stop Date: 09/24/22 Status: Ordered Cialis 5 mg oral tablet 1 tablet = 5 mg, By Mouth, Daily, at the same time every day, # 90 tablet, 3 Refills, Maintenance, 09/29/21 14:03:00 EDT, Tablet, [facility] # 302, Partial fill upon patient [...] capsule, Refills 12, Route to Pharmacy Electronically, [facility] [id number], 168, cm, 09/29/21 13:34:00 EDT, Height, 94.5, kg, 01/17/20 8:18:00 EDT, Dry Weight Start Date: 11/10/21 Status: Ordered Vascepa 1 g oral capsule 2 capsule = 2 Gm, By Mouth, 2 times a day, # 360 capsule, 3 Refills, Maintenance, 09/29/21 14:02:00EDT, [facility]/pharmacy #[id number], 168, cm, 09/29/21 13:34:00 EDT, [...]
--- OUTSIDE RECORDS SUMMARY | 2024-03-23 13:09 | XMS_ITS | Continuity of Care Document ---
Author Organization [facility] Kenneth Ivan lt Address [address] [place] [address]- Care Team Providers Care Letterset Press Set Up Operator Name Role Phone Hima Dunn MD Primary Care Physician [phone] [facility] Date[facility]s): 04/22/23 - 05/22/23 [facility] Adult [address] [place] [address]- Allergies, Adverse Reactions, Alerts No Known Allergies [...] Primary Care Member Role: PCP Address: Address: [address] [place] [address]- Care Team Related Persons Name: BENJAMIN YARBROUGH Address: home [address] [place] [address]
--- OUTSIDE RECORDS SUMMARY | 2024-03-23 13:09 | XMS_ITS | Continuity of Care Document ---
[facility] Address [address] [place] [address]- Care Team Providers Care Office Supervisor Name Role Phone Hima Dunn MD Primary Care Physician Encounter [facility] Date(s): 07/26/20 - 08/25/[address] [address]- Allergies, Adverse Reactions, Alerts Substance Reaction Severity [...] and right glute divided 2Result Comment: [06/16/2018] [facility] [address] Medications atorvastatin 40 mg oral tablet 1 tablet = 40 mg, By Mouth, Daily, # 90 tablet, 3 Refills, Maintenance, 08/10/19 11:25:00 EST, Tablet, [facility]/pharmacy #[id number], 172.72, cm, 08/10/19 10:40:00 EST, Height [...] # 120 capsule, 11 Refills, Maintenance, [facility], 168, cm, 01/17/20 8:18:00 EDT, Height, 94.5, [...]
--- OUTSIDE RECORDS SUMMARY | 2024-03-23 13:09 | XMS_ITS | Continuity of Care Document ---
Author Organization [facility] Alonso Cooper Ivan lt Address [address] [place] [address]- Care Team Providers Care Account Resolution Specialist Name Role Phone Hima Dunn MD Primary Care Physician [facility] Date[facility]s): 10/12/23 - 10/19/23 [facility] Adult [address] [place] [address]- Attending Physician: Hima Dunn MD Allergies, Adverse [...] 3 Refills, Maintenance, 10/12/23 11:10:00 EDT, Tablet, [facility]/pharmacy #[id number], 172, cm, 10/12/23 11:00:00 EDT, Height, 90.8, kg, 02/13/23 11:17:00 EDT, DryWeight Start Date: 10/12/23 Stop Date: 10/06/24 Status: Ordered Cialis 5 mg oral tablet 1 tablet = 5 mg, By Mouth, Daily, at the same time every day, # 90 tablet, 3 Refills, Maintenance, 10/12/23 11:11:00 EDT, Tablet, [facility] # 302, Partial fill upon patient [...] Insomnia, # 30 tablet, 0 Refills, Maintenance, 10/12/23 11:10:00 EDT, Tablet, [facility]/pharmacy #[id number], Partial fill upon patient request if the prescription is for a schedule II opioid drug., 172, cm, 040... Start Date: 10/12/23 Status: Ordered Vascepa 1 g oral capsule 2 capsule = 2 Gm, By Mouth, 2 times a day, # 360 capsule, 3 Refills, Maintenance, 10/12/23 11:10:00EDT, [facility]pharm[id number], 172, cm, 10/12/23 11:00:00 EDT, Height, 90.8, kg, 02/13/23 11:17:00 EDT, Dry Weight Start Date: 10/12/23 Stop Date: 10/06/24 Status: Ordered Problem List Condition Confirmation Course [...] oldest [Reference Range]: 1 Height 172 cm (10/12/23 11:00 AM) Weight 94.8 kg (10/12/23 11:00 AM) Oxygen Saturation [94-100 %] 97 % (10/12/23 11:00 AM) Pulse Rate [55-90 bpm] 59 bpm (10/12/23 11:00 AM) Body Mass Index [18.5-24.99 kg/m2] 32.04 kg/m2 *>HHI* (10/12/23 11:00 AM) Blood Pressure [90-138/55-84 mm Hg] 111/ 64mm Hg (10/12/23 11:00 AM) Mode of Delivery (Oxygen) Room air (10/12/23 11:00 AM) Blood pressure sites Arm, left (10/12/23 11:00 AM) Weight Obtained Via Standing scale (10/12/23 11:00 AM) Social History Social History Type Response Smoking Status Never (less than 100 in lifetime) entered on: 08/04/18 Sex Patient Care team information Care Team Personnel Name: Hima Dunn MD Position: [facility] Physician - Primary Care Member Role: PCP Address: Address: [address] [place] [address]- Care Team Related Persons Name: BENJAMIN YARBROUGH Address: home [address] [place] [address]
--- OUTSIDE RECORDS SUMMARY | 2024-03-23 13:09 | XMS_ITS | Continuity of Care Document ---
Author Organization [facility] Address [address] [place] [address]- Care Team Providers Care Clearing Hand Name Role Phone Mona NINO, Hima Lima Primary Care Physician Encounter [facility] Date(s): 01/17/20 - 01/17/[address] [address]- [place] Discharge Disposition: A-D/C Home Attending Physician: [...] and right glute divided 2Result Comment: [06/16/2018] [facility] [address] Medications atorvastatin 40 mg oral tablet 1 tablet = 40 mg, By Mouth, Daily, # 90 tablet, 3 Refills, Maintenance, 08/10/19 11:25:00 EST, Tablet, [facility]/pharmacy #[id number], 172.72, cm, 08/10/19 10:40:00 EST, [...] oldest [Reference Range]: 1 Height 168 cm (01/17/20 8:18 AM) Weight 94.5 kg (01/17/20 8:18 AM) Oxygen Saturation [94-100 %] 98 % (01/17/20 8:18 AM) Pulse Rate [55-90 bpm] 56 bpm (01/17/20 8:18 AM) Blood Pressure [90-138/55-84 mm Hg] 126/ 74mm Hg (01/17/20 8:18 AM) Respiratory Rate [16-30 br/min] 16 br/mi n (01/17/20 8:18 AM) Temperature [96.8-100.4 DegF] 98.7 DegF (01/17/20 8:18 AM) Mode of Delivery (Oxygen) Room air (01/17/20 8:18 AM) Blood pressure sites Arm, left (01/17/20 8:18 AM) Temperature Route Oral (01/17/20 8:18 AM) Dry Weight 94.5 kg (01/17/20 8:18 AM) Weight Obtained Via Pediatric scale (01/17/20 8:18 AM) Dry Weight Obtained Via Standing scale (01/17/20 8:18 AM) Social History Social History Type Response Smoking Status Never (less than 100 in lifetime) entered on: 08/04/18 Sex
--- OUTSIDE RECORDS SUMMARY | 2024-03-23 13:09 | XMS_ITS | Continuity of Care Document ---
Author Organization [facility] Alonso Cooper Ivan lt Address [address] [place] [address]- Care Team Providers Care Solution Analyst Name Role Phone Hima Dunn MD Primary Care Physician [facility] Date[facility]s): 09/27/20 - 10/27/20 [facility] Adult [address] [place] [address]- Attending Physician: Admtr, Ar8 Admitting Physician: Admtr, [...] 360 capsule, 3 Refills, Maintenance, 09/27/20 14:28:00EDT, [facility]/pharmacy #[id number], 168, cm, 09/27/20 14:09:00 EDT, Height, 94.5, kg, 01/17/20 8:18:00 EDT, Dry Weight Start Date: 09/27/20 Stop Date: 09/22/21 Status: Ordered Viagra 50 mg oral tablet 1 tablet = 50 mg, By Mouth, Daily, 1 hour before sexual activity, # 30 tablet, 11 Refills, Maintenance, 09/27/20 14:25:00 EDT, Tablet, [facility] # 302, 168, cm, 09/27/20 14:09:00 [...]
--- OUTSIDE RECORDS SUMMARY | 2024-03-23 13:09 | XMS_ITS | Continuity of Care Document ---
Author Organization [facility] Address [address] [place] [address]- Care Team Providers Care Lamp Shade Joiner Name Role Phone Hima Dunn MD Primary Care Physician [facility] Date[facility]s): 01/18/24 - 02/17/24 [facility] [address] [place] [address]- Attending Physician: AdmNacho todd Admitting Physician: Admtr, Nacho Referring Physician: Admtr, Ar8 Allergies, Adverse Reactions, [...] Recorded tetanus/diphtheria/pertussis, acel(Tdap) 06/07/18 Recorded tetanus/diphtheria/pertussis, acel(Tdap) 10/5/15 Given 1Result Comment: also left glute and right glute divided 2Result Comment: [06/16/2018] [facility] [address] Medications atorvastatin 40 mg oral tablet 1 tablet = 40 mg, By Mouth, Daily, # 90 tablet, 3 Refills, Maintenance, 10/12/23 11:10:00 EDT, Tablet, [facility]/pharmacy #[id number], 172, cm, 10/12/23 11:00:00 EDT, Height, 90.8, kg, 02/13/23 11:17:00 EDT, DryWeight Start Date: 10/12/23 Stop Date: 10/06/24 Status: Ordered Cialis 5 mg oral tablet 1 tablet = 5 mg, By Mouth, Daily, at the same time every day, # 90 tablet, 3 Refills, Maintenance, 10/12/23 11:11:00 EDT, Tablet, [facility] # 302, Partial fill upon patient request if the prescription is for a schedule II opioid drug., 172, cm,... Start Date: 10/12/23 Stop Date: 10/06/24 Status: Ordered Glucosamine By Mouth, 0 Refills, Maintenance, 08/04/18 11:54:11 EST Start Date: 08/04/18 Status: Ordered Golytely - oral powder for reconstitution See Instructions, Per instructions from GI., # 4,000 mL, 0 Refills, Maintenance, 01/18/24 11:37:00 EDT, [facility]/pharmacy #[id number], Partial fill upon patient request if the prescription is for a schedule II opioid drug., Per instructions from GI., 172, cm, 07... Start Date: 01/18/24 Status: Ordered Vascepa 1 g oral capsule 2 capsule = 2 Gm, By Mouth, 2 times a day, # 360 capsule, 3 Refills, Maintenance, 10/12/23 11:10:00EDT, [facility]/pharmacy #[id number], 172, cm, 10/12/23 11:00:00 EDT, Height, 90.8, kg, 02/13/23 11:17:00 EDT, Dry Weight Start Date: 10/12/23 Stop Date: 10/06/24 Status: Ordered zolpidem 10 mg oral tablet 1 tablet = 10 mg, By Mouth, Daily at bedtime, # 30 tablet, 5 Refills, Maintenance, 01/13/24 8:33:00EDT, [facility]/pharmacy #[id number], Partial fill upon patient [...] Personnel Name: Mona NINO, Hima Lima Position: [facility] Physician - Primary Care Member Role: PCP Address: Address: [address] [place] [address]- Care Team Related Persons Name: BENJAMIN YARBROUGH Address: [address] [address]
--- OUTSIDE RECORDS SUMMARY | 2024-03-23 13:09 | XMS_ITS | Continuity of Care Document ---
Author Organization [facility] Kenneth Ivan lt Address [address] [place] [address]- Care Team Providers Care Security Software Engineer Name Role Phone Hima Dunn MD Primary Care Physician [phone] [facility] Date[facility]s): 10/13/23 - 11/12/23 [facility] Adult [address] [place] [address]- Allergies, Adverse Reactions, Alerts No Known Allergies [...] a schedule II opioid drug., 172, cm, 04/0... Start Date: 10/12/23 Status: Ordered Vascepa 1 g oral capsule 2 capsule = 2 Gm, By Mouth, 2 times a day, # 360 capsule, 3 Refills, Maintenance, 10/12/23 11:10:00EDT, [facility]/pharmacy #[id number], 172, cm, 10/12/23 11:00:00 [...] Team Personnel Name: Hima Dunn MD Position: [facility] Physician - Primary Care Member Role: PCP Address: Address: [address] [place] [address]- Care Team Related Persons Name: BENJAMIN YARBROUGH Address: [address] [address]
--- OUTSIDE RECORDS SUMMARY | 2024-03-23 13:09 | XMS_ITS | Continuity of Care Document ---
Author Organization [facility] Kenneth Ivan lt Address [address] [place] [address]- Care Team Providers Care Aquatic Centre Manager Name Role Phone Mona NINO, Hima Lima Primary Care Physician [phone] [facility] Date(s): 02/17/22 - 02/24/22 [facility] Adult [address] [place] [address]- Encounter Diagnosis BPPV (benign paroxysmal positional vertigo)(Discharge Diagnosis) - 02/17/22 Attending Physician: Not on Staff, Attending MD [...] right glute divided 2Result Comment: [06/16/2018] [facility] [address] Medications atorvastatin 40 mg oral tablet 1 tablet = 40 mg, By Mouth, Daily, # 90 tablet, 3 Refills, Maintenance, 09/29/21 14:02:00 EDT, Tablet, [facility]/pharmacy #[id number], 168, cm, 09/29/21 13:34:00 EDT, Height, 94.5, kg, 01/17/20 8:18:00 EDT, Dry Weight Start Date: 09/29/21 Stop Date: 09/24/22 Status: Ordered Cialis 5 mg oral tablet 1 tablet = 5 mg, By Mouth, Daily, at the same time every day, # 90 tablet, 3 Refills, Maintenance, 09/29/21 14:03:00 EDT, Tablet, [facility] # 302, Partial fill upon patient [...] 03/19/22 12:02:00 EDT, 02/17/22 12:02:00 EDT, Tablet, [facility]/pharmacy #[id number], 168, cm, 02/17/22 11:34:00 EDT, Height [...] Steatohepatitis(Confirmed) Active 1Colonoscopy 2013 -, repeat 2023. Diagnosis Diagnosis Type Effective Dates Health Status Clinical Service Informant BPPV (benign paroxysmal positional vertigo) Discharge Diagnosis 02/17/22 Vital Signs Most recent to oldest [Reference Range]: 1 Height 168 cm (02/17/22 11:34 AM) Weight 92.1 kg (02/17/22 11:34 AM) Oxygen Saturation [94-100 %] 98 % (02/17/22 11:34 AM) Pulse Rate [55-90 bpm] 71 bpm (02/17/22 11:34 AM) Body Mass Index [18.5-24.99] 32.63 *>HHI* (02/17/22 11:34 AM) Blood Pressure [90-138/55-84 mm Hg] 108/ 64mm Hg (02/17/22 11:34 AM) Temperature [96.8-100.4 DegF] 97.8 DegF (02/17/22 11:34 AM) Mode of Delivery (Oxygen) Room air (02/17/22 11:34 AM) Blood pressure sites Arm, right (02/17/22 11:34 AM) Temperature Route Oral (02/17/22 11:34 AM) Weight Obtained Via Standing scale (02/17/22 11:34 AM) Social History Social History Type Response Smoking Status Never (less than 100 in lifetime) entered on: 08/04/18 Sex
--- OUTSIDE RECORDS SUMMARY | 2024-03-23 13:09 | XMS_ITS | Continuity of Care Document ---
Author Organization [facility] Kenneth Ivan lt Address [address] [place] [address]- Care Team Providers Care Machine Maintenance Mechanic Name Role Phone Hima Dunn MD Primary Care Physician [facility] Date(s): 08/10/19 - 08/17/19 [facility] Adult [address] [place] [address]- [facility] Attending Physician: Hima Dunn MD Allergies, Adverse [...] vaccine 1 06/07/18 Recorded 1Result Comment: [06/16/2018] [facility] Medications atorvastatin 40 mg oral tablet 1 tablet = 40 mg, By Mouth, Daily, # 90 tablet, 3 Refills, Maintenance, 08/10/19 11:25:00 EST, Tablet, [facility]/pharmacy #[id number], 172.72, cm, 08/10/19 10:40:00 EST, [...] oldest [Reference Range]: 1 Height 172.72 cm (08/10/19 10:40 AM) Weight 93.6 kg (08/10/19 10:40 AM) Oxygen Saturation [94-100 %] 98 % (08/10/19 10:40 AM) Pulse Rate [55-90 bpm] 76 bpm (08/10/19 10:40 AM) Body Mass Index [18.5-24.99] 31.38 *>HHI* (08/10/19 10:40 AM) Blood Pressure [90-138/55-84 mm Hg] 110/ 70mm Hg (08/10/19 10:40 AM) Temperature [96.8-100.4 DegF] 98.5 DegF (08/10/19 10:40 AM) Mode of Delivery (Oxygen) Room air (08/10/19 10:40 AM) Blood pressure sites Arm, left (08/10/19 10:40 AM) Temperature Route Oral (08/10/19 10:40 AM) Weight Obtained Via Standing scale (08/10/19 10:40 AM) Social History Social History Type Response Smoking Status Never (less than 100 in lifetime) entered on: 08/04/18 Sex
--- OUTSIDE RECORDS SUMMARY | 2024-03-23 13:09 | XMS_ITS | Continuity of Care Document ---
Author Organization [facility] Kenneth Ivan lt Address [address] [place] [address]- Care Team Providers Care Road Equipment Operator Name Role Phone Hima Dunn MD Primary Care Physician [facility]s): 09/29/21 - 10/06/21 [facility] Adult [address] [place] [address]- Encounter Diagnosis Erectile dysfunction(Discharge Diagnosis) - 09/29/21 Attending Physician: Hima Dunn MD Allergies, Adverse [...] 3 Refills, Maintenance, 09/29/21 14:02:00 EDT, Tablet, [facility]/pharmacy #[id number], 168, cm, 09/29/21 13:34:00 EDT, Height, 94.5, kg, 01/17/20 8:18:00 EDT, Dry Weight Start Date: 09/29/21 Stop Date: 09/24/22 Status: Ordered Cialis 5 mg oral tablet 1 tablet = 5 mg, By Mouth, Daily, at the same time every day, # 90 tablet, 3 Refills, Maintenance, 09/29/21 14:03:00 EDT, Tablet, [facility] # 302, Partial fill upon patient [...] 360 capsule, 3 Refills, Maintenance, 09/29/21 14:02:00EDT, [facility]/pharmacy #[id number], 168, cm, 09/29/21 13:34:00 [...] Effective Dates Health Status Clinical Service Informant Erectile dysfunction Discharge Diagnosis 09/29/21 Vital Signs Most recent to oldest [Reference Range]: 1 Height 168 cm (09/29/21 1:34 PM) Weight 95.3 kg (09/29/21 1:34 PM) Oxygen Saturation [94-100 %] 97 % (09/29/21 1:34 PM) Pulse Rate [55-90 bpm] 66 bpm (09/29/21 1:34 PM) Body Mass Index [18.5-24.99] 33.77 *>HHI* (09/29/21 1:34 PM) Blood Pressure [90-138/55-84 mm Hg] 112/ 70mm Hg (09/29/21 1:34 PM) Mode of Delivery (Oxygen) Room air (09/29/21 1:34 PM) Blood pressure sites Arm, left (09/29/21 1:34 PM) Weight Obtained Via Standing scale (09/29/21 1:34 PM) Social History Social History Type Response Smoking Status Never (less than 100 in lifetime) entered on: 08/04/18 Sex
--- OUTSIDE RECORDS SUMMARY | 2024-03-23 13:09 | XMS_ITS | Continuity of Care Document ---
Author Organization [facility] Address [address] [place] [address]- Care Team Providers Care Commercial Manager Name Role Phone iHma Dunn MD Primary Care Physician [facility] Date(s): 04/19/23 - 05/19/[address] [email or web address] Allergies, Adverse Reactions, Alerts No Known Allergies [...] Care Member Role: PCP Address: Address: [address] [place] [address]- Care Team Related Persons Name: SPRING BENJAMIN Address: [address] [address]
--- OUTSIDE RECORDS SUMMARY | 2024-03-23 13:09 | XMS_ITS | Continuity of Care Document ---
Author Organization [facility] Kenneth Ivan lt Address [address] [place] [address]- Care Team Providers Care Assembly Loader Name Role Phone Hima Dunn MD Primary Care Physician [facility] Date(s): 04/19/23 - 05/19/23 [facility] Adult [address] [place] [address]- Allergies, Adverse Reactions, Alerts No Known Allergies [...] Primary Care Member Role: PCP Address: Address: [address] [place] [address]- Care Team Related Persons Name: BENJAMIN YARBROUGH Address: home [address] [place] [address]
--- OUTSIDE RECORDS SUMMARY | 2024-03-23 13:09 | XMS_ITS | Continuity of Care Document ---
Author Organization [facility] Kenneth Ivan lt Address [address] [place] [address]- Care Team Providers Care Sales Representative Trainee Name Role Phone Mona NINO, Hima Lima Primary Care Physician Encounter [facility] Date(s): 10/08/22 - 11/07/22 [facility] Adult [address] [place] [address]- Allergies, Adverse Reactions, Alerts No Known Allergies [...] a schedule II opioid drug., 168, cm, 04... Start Date: 10/06/22 Stop Date: 10/01/23 Status: [...] Team Personnel Name: Hima Dunn MD Position: [facility] Primary Care Physician Member Role: PCP Address: Address: [address] [place] [id number]- Care Team Related Persons Name: SPRING BENJAMIN Address: [address] [address]
--- OUTSIDE RECORDS SUMMARY | 2024-03-23 13:09 | XMS_ITS | Continuity of Care Document ---
Author Organization [facility] Kenneth Ivan lt Address [address] [place] [address]- Care Team Providers Care Canvas Worker Name Role Phone Mona NINO, Hima Lima Primary Care Physician [phone] Encounter [facility] Date(s): 10/01/22 - 10/31/22 [facility] Adult [address] [place] [address]- Allergies, Adverse Reactions, Alerts No Known Allergies [...] Team Personnel Name: Hima Dunn MD Position: [facility] Primary Care Physician Member Role: PCP Address: Address: [address] [place] [id number]- Care Team Related Persons Name: SPRING BENJAMIN Address: [address] [address]
[2024-03-23 13:11] VITALS: BMI 29.1
[2024-03-23] MEDS: Lactated Ringers 1,000 ML 100 ML IVCONT (13:29)
[2024-03-23 13:34] VITALS: BP 127/78; PULSE 56; RESP 14; TEMP 36.3; O2SAT 96
[2024-03-23 15:36] VITALS: BP 90/52; PULSE 62; RESP 16; TEMP 36.1; O2SAT 94
--- NOTE | 2024-03-23 15:47 | P.BOP_ITS ---
Brief Operative Note Date of Service: 03/23/24 Pre-op diagnosis: Dysphagia, Screening Post-op diagnosis: other (Hiatal hernia, R/O EoE, Diverticulosis) Procedure: EGD with balloon dilation from 19 to 20mm and with biopsies, and Colonoscopy to the cecum and TI Surgeon: Ki Rios MD Anesthesia: MAC Was an Recycling Attendant used for this Procedure?: No Estimated blood loss (mL): 2.0 Pathology: other (A. EG Junction at 38cm B. Esophagus 20-25cm) Condition: stable Disposition: PACU
[2024-03-23 15:51] VITALS: BP 112/66; PULSE 52; RESP 18; O2SAT 96
[2024-03-23 16:06] VITALS: BP 120/62; PULSE 47; RESP 18; O2SAT 97
[2024-03-23 16:16] VITALS: BP 122/71; PULSE 54; RESP 18; TEMP 36.1; O2SAT 96
--- NOTE | 2024-03-23 23:39 | OP_ITS ---
DATE OF SERVICE: 03/23/2024 SURGEON: Ki Rios MD INDICATIONS: The patient presents for evaluation of dysphagia and colorectal cancer screening. Full consent has been obtained from him for both procedures, including risks of bleeding and perforation. PREOPERATIVE DIAGNOSIS: POSTOPERATIVE DIAGNOSIS: PROCEDURE PERFORMED: Esophagogastroduodenoscopy with balloon dilation of gastroesophageal junction and biopsies, and colonoscopy to the cecum and terminal ileum. ESTIMATED BLOOD LOSS: COMPLICATIONS: ANESTHESIA: Monitored anesthesia care. ASSISTANTS: SPECIMENS: PREOPERATIVE DIAGNOSES: Dysphagia and colorectal cancer screening. POSTOPERATIVE DIAGNOSES: Dysphagia and colorectal cancer screening, small hiatal hernia, rule out eosinophilic esophagitis, sigmoid diverticulosis, and internal hemorrhoids. DESCRIPTION OF PROCEDURE: The patient was placed in the left lateral decubitus position. The Olympus video gastroscope was passed in the posterior oropharynx and upper esophagus under direct vision. The scope was passed slowly into the distal esophagus. The gastroesophageal junction appeared at 38 cm. With insufflation of air, there did not appear to be any sign of esophageal ring or stricture. The scope easily entered the stomach. There was a small hiatal hernia. The scope was advanced to the pylorus, and the duodenum was cannulated into the descending portion. The duodenum including the bulb appeared normal without mass or ulceration. The scope was withdrawn back in the stomach. The gastric antrum and body appeared normal with good peristalsis. The scope was retroflexed visualizing the proximal stomach carefully, which appeared normal, without any sign of mass or ulceration. The scope was straightened and withdrawn back to the esophagus. I did use a [employer] incremental esophageal dilating balloon to dilate the gastroesophageal junction from 19 mm to 20 mm at the recommended pressure for between 30 and 60 seconds each. Post dilation, there was no appreciable heme nor disruption of the EG junction. The balloon itself did pull easily into and out of the stomach. The scope was withdrawn through the remainder of the esophagus. The esophageal mucosa appeared normal, and there were no proximal esophageal rings. I did obtain biopsies between 20 and 25 cm to rule out eosinophilic esophagitis. The scope was withdrawn from the patient. He was turned around for the colonoscopy. The digital rectal exam revealed no abnormalities. The Olympus video pediatric colonoscope was entered into the rectum and advanced easily to the cecum. Once in the cecum, I did identify normal-appearing cecal pouch with appendiceal orifice and a normal-appearing ileocecal valve. The terminal ileum was cannulated and appeared normal. The scope was withdrawn back in the colon. The entire cecum and ileocecal valve appeared normal. The scope was slowly withdrawn assessing all mucosal surfaces carefully. Preparation was excellent. I did not visualize any sign of polyps, colitis, nor angiodysplasia. There was a mild amount of sigmoid diverticulosis. In the rectum, scope was retroflexed visualizing small internal hemorrhoids, but no other pathology. The rectal mucosa appeared normal. The scope was straightened and withdrawn from the patient. He tolerated both procedures well and was returned to the recovery area in stable condition. IMPRESSION: 1. Small hiatal hernia, otherwise normal upper endoscopy. Status post balloon dilation of gastroesophageal junction. Rule out eosinophilic esophagitis. 2. Diverticulosis. 3. Internal hemorrhoids. PLAN: The results of the biopsies will be checked. I shall give him a 30 day course of omeprazole 20 mg due to the biopsies and dilation today just to treat any potential acid reflux that might be contributing to his dysphagia with esophageal spasm. However, I do not think he needs to be on this long-term. He does report that his dysphagia is very intermittent and infrequent and could be related to eating either too fast or just too large piece of food. At this point, I would recommend that he observe things in this regard. I do not think he needs to be on a chronic PPI at this time. In regard to the colonoscopy given that this was his 3rd negative colonoscopy, has no family history of colon cancer, and he is now 73 years old, I do not think he would need any further screening colonoscopies going forward. If things are stable, I advised him to see me on a p.r.n. basis. He was advised not to use any aspirin and NSAIDs for 1 week. I did advise him to certainly call if he has any recurrent problems of dysphagia or any other questions. This has all been discussed with his . MD BEST Giraldo/NISSA / [id number]
== END 2024-03-23 16:45 | disposition home or self-care (01) ==
PROVIDERS: PCP Internal Medicine; Visit Provider Internal Medicine
PROC: (CPT 43249; principal; 2024-03-23 14:00)
PROC: 0DJD8ZZ Inspection of Lower Intestinal Tract, Via Natural or Artificial Opening Endoscopic (ICD-10-PCS; CPT 45378; 2024-03-23 14:00)
DX: K20.80 Other esophagitis without bleeding (principal); K44.9 Diaphragmatic hernia without obstruction or gangrene; R13.10 Dysphagia, unspecified; Z12.11 Encounter for screening for malignant neoplasm of colon; K57.30 Diverticulosis of large intestine without perforation or abscess without bleeding; K64.8 Other hemorrhoids; E78.5 Hyperlipidemia, unspecified; G47.33 Obstructive sleep apnea (adult) (pediatric); Z99.89 Dependence on other enabling machines and devices; Z79.02 Long term (current) use of antithrombotics/antiplatelets; Z79.899 Other long term (current) drug therapy
CPT/HCPCS: 43249; 43239; G0105; 88305; C1726; J1596; J2250; J2704